=== PATIENT | female | born 1980 | race Caucasian/White ===

== ENCOUNTER 2016-05-05 06:19 | Outpatient (CLI) ==
[2014-01-06 08:57] VITALS: BMI 26.6
[2016-05-05 06:49] LABS: ALBUMIN 3.7 g/dL (3.4-5.0); ALBUMIN/GLOBULIN RATIO 1.19; ANION GAP 12.1; BILIRUBIN,TOTAL 0.97 mg/dL (0.00-1.20); BUN/CREATININE RATIO 11.9; CALCIUM 9.3 mg/dL (8.2-10.2); CHOL/HDL RATIO 3.8 (4.5-5.5); CREATININE 0.84 mg/dL (0.60-1.30); POTASSIUM 4.1 mmol/L (3.5-5.10); TOTAL PROTEIN 6.8 g/dL (6.4-8.2)
== END 2016-05-05 06:20 | disposition home or self-care (01) ==
LOC: LAB 06:19
PROVIDERS: ATTEND Internal Medicine
DX: E78.5 Hyperlipidemia, unspecified (principal); R79.9 Abnormal finding of blood chemistry, unspecified
CPT/HCPCS: 36415; 80053; 80061

== ENCOUNTER 2016-09-04 06:44 | Outpatient (CLI) | payer OTHER ==
[2014-01-06 08:57] VITALS: BMI 26.6
[2016-09-04 06:58] LABS: BASOPHILS # (AUTO) 0.1 K/uL (0-0.2); BASOPHILS % (AUTO) 0.7 % (0.0-3.0); EOSINOPHILS # (AUTO) 0.3 K/ul (0.0-0.7); EOSINOPHILS % (AUTO) 2.9 % (0.0-7.0); HEMATOCRIT 40.6 % (37.0-47.0); HEMOGLOBIN 14.2 g/dl (12.0-16.0); IMMATURE GRANULOCYTE % (AUTO) 0.1 % (0.0-5.0); LYMPHOCYTES # (AUTO) 3.2 K/uL (0.60-3.4); LYMPHOCYTES % (AUTO) 36.9 (10.0-50.0); MEAN CORPUSCULAR HEMOGLOBIN 32.1 pg (27.0-31.0); MEAN CORPUSCULAR VOLUME 91.9 fl (81.0-99.0); MONOCYTES # (AUTO) 0.5 K/uL (0.4-2.0); MONOCYTES % (AUTO) 5.4 (0-10); NEUTROPHILS # (AUTO) 4.6 K/ul (2.0-6.9); PLATELET COUNT 238 10^3/uL (140-440); RED BLOOD COUNT 4.42 10^6/ul (4.20-5.40); WHITE BLOOD COUNT 8.58 K/ul (4.6-10.2)
[2016-09-04 07:39] LABS: ALBUMIN 3.5 g/dL (3.4-5.0); ALBUMIN/GLOBULIN RATIO 1.09; BILIRUBIN,TOTAL 0.46 mg/dL (0.00-1.20); BUN/CREATININE RATIO 16.66; CALCIUM 9.4 mg/dL (8.2-10.2); CHOL/HDL RATIO 4.6 (4.5-5.5); CREATININE 0.9 mg/dL (0.60-1.30); TOTAL PROTEIN 6.7 g/dL (6.4-8.2)
[2016-09-04 07:59] LABS: ERYTHROCYTE SEDIMENTATION RATE 14 mm/hr (0-20); ESR INTERNAL QC INTERNAL QC VALID
[2016-09-05 06:12] LABS: RHEUMATOID ARTHRITIS FACTOR 10.8 IU/mL (0.0-13.9)
[2016-09-05 08:40] LABS: C-REACTIVE PROTEIN 1.1 mg/L (0.0-4.9)
[2016-09-06 09:13] LABS: ANTI-NUCLEAR ANTIBODY SCREEN Negative (Negative)
== END 2016-09-04 06:45 | disposition home or self-care (01) ==
LOC: LAB 06:44
PROVIDERS: ATTEND Internal Medicine
DX: E78.5 Hyperlipidemia, unspecified (principal); R53.83 Other fatigue; E66.9 Obesity, unspecified
CPT/HCPCS: 36415; 80053; 80061; 82306; 83036; 84439; 84443; 85025; 85651; 86038; 86140; 86430

== ENCOUNTER 2017-01-05 10:09 | Outpatient (CLI) | payer OTHER ==
[2014-01-06 08:57] VITALS: BMI 26.6
== END 2017-01-05 10:10 | disposition home or self-care (01) ==
LOC: RAD 10:09
PROVIDERS: ATTEND Obstetrics & Gynecology Obstetrics
DX: Z12.31 Encounter for screening mammogram for malignant neoplasm of breast (principal)
CPT/HCPCS: 77067

== ENCOUNTER 2017-01-16 11:23 | Emergency (ER) ==
[2017-01-16 11:26] VITALS: BP 108/69; TEMP 99; BMI 32.3
[2017-01-16] MEDS ORDERED: ZOFRAN 4 MG/2 ML IM STA (11:31)
[2017-01-16] MEDS ORDERED: DILAUDID 1 MG/ML SYRINGE IM STA (11:31)
--- NOTE | 2017-01-16 12:27 | ED.PDOC ---
General ED Provider: Dr. LEONORA SERNA Chief Complaint: Headache Stated Complaint: headache Time Seen by Physician: 11:30 Mode of Arrival: Wheelchair Information Source: Patient Exam Limitations: No limitations Primary Care Provider: EMILIO DUFF Nursing and Triage Documentation Reviewed and Agree: Yes Neurological Complaint Exam - Headache Complaint/Exam Onset: Gradual Duration: 1 day Symptoms Are: Still present Timing: Constant Episodes Lasting: Hours Worst Headache Ever: No Initial Severity: Severe Current Severity: Severe Location: Diffuse, Frontal, Temporal Aggravating: Reports: None Alleviating: Reports: None Associated Signs and Symptoms: Denies: Dizziness, Seizure, Nausea, Vomiting, Sinus pressure, Fever, Neck pain, Neck stiffness, Decreased LOC, Visual changes Related History: Reports: Similar episode Related Surgical History: Reports: None SAH Risk Factors: Reports: None Meningitis Risk Factors: Reports: None SDH Risk Factors: Reports: None Temporal Arteritis Risk Factors: Reports: Female, Normal Head CT Within Last 12 Months: No Fundoscopic Exam: Present: Normal Findings Temporal Artery Tenderness: Present: None Sinus Tenderness: Present: None TMJ Tenderness: Present: None Glascow Coma Scale (see protocol): 15 Meningeal Signs Positive: No Pain on Passive Flexion-Positive Kernig's: No ROM Limited In: No Limitiations Focal Weakness: Present: None Focal Sensory Loss: Present: None Gait: Normal Nystagmus Present: No Gag Reflex Present: No [id number]: Normal Findings Romberg Test Positive: No Babinski Sign: Negative Right, Negative Left Differential Diagnoses: Migraine, Viral Syndrome Review of Systems - Review Of Systems Constitutional: Reports: No symptoms Eyes: Reports: No symptoms Ears, Nose, Mouth, Throat: Reports: No symptoms Respiratory: Reports: No symptoms Cardiac: Reports: No symptoms GI: Reports: No symptoms : Reports: No symptoms Musculoskeletal: Reports: No symptoms Skin: Reports: No symptoms Neurological: Reports: Headache Endocrine: Reports: No symptoms Hematologic/Lymphatic: Reports: No symptoms All Other Systems: Reviewed and Negative Past Medical History - Past Medical History Previously Healthy: Yes Endocrine: Reports: None Cardiovascular: Reports: None Respiratory: Reports: None Hematological: Reports: None Gastrointestinal: Reports: None Genitourinary: Reports: None Neuro/Psych: Reports: None Musculoskeletal: Reports: None Cancer: Reports: None Last Menstrual Period: N/A - Surgical History General Surgical History: Reports: None - Family History Family History: Reports: None - Social History Smoking Status: Never smoker Hx Substance Use: No Alcohol Screening: Occasionally Physical Exam - Physical Exam Appearance: Well-appearing, No pain distress, Well-nourished Eyes: RAYMOND, EOMI, Conjunctiva clear ENT: Ears normal, Nose normal, Oropharynx normal Respiratory: Airway patent, Breath sounds clear, Breath sounds equal, Respirations nonlabored Cardiovascular: RRR, Pulses normal, No rub, No murmur GI/: Soft, Nontender, No masses, Bowel sounds normal, No Organomegaly Musculoskeletal: Normal strength, ROM intact, No edema, No calf tenderness Skin: Warm, Dry, Normal color Neurological: Sensation intact, Motor intact, Reflexes intact, Cranial nerves intact, Alert, Oriented Psychiatric: Affect appropriate, Mood appropriate Interpretation - Radiology Interpretation Radiology Interpretation By: Radiologist Radiology Results: No acute changes Exam Interpreted: CT Scan Critical Care Note - Critical Care Note Total Time (mins): 0 Course - Course Orders, Labs, Meds: Orders Category Date Time Status Hydromorphone HCl [Dilaudid 1 mg/ml Syringe] MEDS 01/16/17 11:31 Discontinued 1 mg IM ONCE STA Ondansetron HCl/Pf [Zofran 4 mg/2 ml] MEDS 01/16/17 11:31 Discontinued 4 mg IM ONCE STA Medications Discontinued Medications Generic Name Dose Route Start Last Admin Trade Name Terryq PRN Reason Stop Dose Admin Hydromorphone HCl 1 mg 01/16/17 11:31 01/16/17 11:39 Dilaudid 1 Mg/Ml Syringe IM 01/16/17 11:32 1 mg ONCE STA Administration Ondansetron HCl 4 mg 01/16/17 11:31 01/16/17 11:39 Zofran 4 Mg/2 Ml IM 01/16/17 11:32 4 mg ONCE STA Administration Vital Signs: Temp Pulse Resp BP Pulse Ox 01/16/17 11:23 99.0 F 66 16 108/69 97 Departure - Departure Time of Disposition: 12:27 Disposition: HOME SELF-CARE Discharge Problem: Headache, Migraine Instructions: Migraine Headache (ED), Acute Headache (ED) Condition: Good Pt referred to PMD for follow-up: Yes Additional Instructions: Please call your Family Physician as soon as possible to schedule a follow-up appointment. Allergies/Adverse Reactions: Allergies No Known Allergies Allergy (Verified 01/16/17 11:26) Home Medications: Ambulatory Orders Propanolol 10 mg PO BID 03/30/13 Sertraline HCl [Zoloft] 25 mg PO DAILY 03/30/13 Valacyclovir HCl [Valtrex] 1,000 mg PO DAILY 03/30/13 Eletriptan HBr [Relpax] 40 mg PO BID PRN 01/06/14
== END 2017-01-16 13:10 | disposition home or self-care (01) ==
LOC: ED 11:23
DX: G43.909 Migraine, unspecified, not intractable, without status migrainosus (principal)
CPT/HCPCS: 96372; 99283

== ENCOUNTER 2017-01-18 13:41 | Outpatient (CLI) ==
[2017-01-18 14:46] LABS: BASOPHILS # (AUTO) 0.1 K/uL (0-0.2); BASOPHILS % (AUTO) 0.8 % (0.0-3.0); EOSINOPHILS # (AUTO) 0.3 K/ul (0.0-0.7); HEMATOCRIT 40.4 % (37.0-47.0); HEMOGLOBIN 14.4 g/dl (12.0-16.0); IMMATURE GRANULOCYTE % (AUTO) 0.2 % (0.0-5.0); LYMPHOCYTES # (AUTO) 3.3 K/uL (0.60-3.4); LYMPHOCYTES % (AUTO) 39.1 (10.0-50.0); MEAN CORPUSCULAR HEMOGLOBIN 32.7 pg (27.0-31.0); MEAN CORPUSCULAR HGB CONC 35.6 (31.8-35.4); MEAN CORPUSCULAR VOLUME 91.8 fl (81.0-99.0); MONOCYTES # (AUTO) 0.5 K/uL (0.4-2.0); MONOCYTES % (AUTO) 5.4 (0-10); NEUTROPHILS # (AUTO) 4.4 K/ul (2.0-6.9); NEUTROPHILS % (AUTO) 51.5; PLATELET COUNT 262 10^3/uL (140-440); WHITE BLOOD COUNT 8.54 K/ul (4.6-10.2)
[2017-01-18 15:26] LABS: ALBUMIN 3.3 g/dL (3.4-5.0); ALBUMIN/GLOBULIN RATIO 1.03; ANION GAP 11.2; BILIRUBIN,TOTAL 0.27 mg/dL (0.00-1.20); BUN/CREATININE RATIO 19.17; CALCIUM 9.2 mg/dL (8.2-10.2); CHOL/HDL RATIO 4.8 (4.5-5.5); CREATININE 0.73 mg/dL (0.60-1.30); POTASSIUM 4.2 mmol/L (3.5-5.10); TOTAL PROTEIN 6.5 g/dL (6.4-8.2)
--- NOTE | 2017-01-18 15:47 | MRI ---
EXAM: MRA brain without IV contrast. DATE: 18 January 2017. HISTORY: Headaches. Migraine headches increasing in severity. TECHNIQUE: 3-D [id number] sequence centered on the anvik Ramirez was performed without IV contra st, using 1.5 Ernestina magnet. 3-D MIP reconstruction images of the intracranial arteries were produced in addition to the axial source images. COMPARISON: MRI brain 18 January 2017. FINDINGS: Neither vertebral artery is dominant. Vertebrobasilar system is tortuous. Basilar artery is normal in diameter, without focal stenosis, dissection or aneurysm. Each superior cerebellar viridiana ry is intact. Right and left PCOM are intact. ACOM is not visible. Symmetric bilateral blood flow is evident within the anterior, middle, and posterior cerebral artery distributions peripherally. No intracranial aneurysm or AVM is detected. Both petrous ICAs are normal. Each cavernous ICA is norm al. IMPRESSIONS: 1. Nonvisualization of ACOM. 2. Intact bilateral PCOM. 3. No intracranial aneurysm or AVM. 4. Normal vertebral and basilar arteries. 5. Normal bilateral petrous / cavernous ICAs
--- NOTE | 2017-01-18 15:51 | MRI ---
EXAM: MRI brain without IV contrast. DATE: 18 January 2017. HISTORY: Headaches. Migraine headaches worsening in severity. TECHNIQUE: Sagittal T1W, axial T2W, axial FLAIR, axial T1W, axial DWI, and coronal T2W GRE sequences of the brain were obtained using 1.2 Ernestina magnet. No IV contrast. COMPARISON: MRA brain [address] head 01/06/2014. MRI brain 30 May 2011. FINDINGS: The lateral ventricles, Sylvian fissures, and many cerebral sulci are mildly prominent due to involutional change. No midline shift, mass effect or abnormal extra-axial fluid collection is a pparent. No acute infarct, hemorrhage or neoplasm is identified. The lion - white matter differenti ation is normal. The 7th/8th cranial nerve complexes, cerebellopontine angles, brainstem, and visibl e cervical spinal cord are normal. There is no cerebellar tonsillar ectopia. The pituitary gland is small in size, with CSF filling part of the pituitary fossa. Corpus callosum is normal in size and configuration. Flow voids are present in the major intracranial arteries and in the dural venous sin uses. Vertebrobasilar arterial system is tortuous. No aneurysm, AVM or dural venous sinus thrombosi s is apparent. No orbit abnormality is identified. The mastoid air cells are unremarkable. There i s no acute sinusitis. Minor adenoid tissue prominence is noted. A few small lymph nodes are seen wi thin the upper neck bilaterally. No neck mass or lymphadenopathy is detected. No calvarial neoplasm or acute fracture is evident. IMPRESSIONS: 1. No acute infarct, hemorrhage, mass or hydrocephalus. 2. Minor/mild cerebral and minor cerebellar atrophy. 3. 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 4. Minor adenoid hypertrophy (likely benign).
== END 2017-01-18 13:42 | disposition home or self-care (01) ==
LOC: RAD 13:41
PROVIDERS: ATTEND Internal Medicine
DX: G43.909 Migraine, unspecified, not intractable, without status migrainosus (principal); E78.5 Hyperlipidemia, unspecified; M19.90 Unspecified osteoarthritis, unspecified site
CPT/HCPCS: 36415; 80053; 80061; 83036; 84443; 85025

== ENCOUNTER 2017-03-16 10:02 | Outpatient (CLI) | payer OTHER ==
[2017-03-16 11:06] LABS: FLU INTERNAL QC INTERNAL QC VALID; MOLECULAR FLU A NEGATIVE (NEGATIVE); MOLECULAR FLU B NEGATIVE (NEGATIVE)
== END 2017-03-16 10:03 | disposition home or self-care (01) ==
LOC: LAB 10:02
PROVIDERS: ATTEND Internal Medicine
DX: J02.9 Acute pharyngitis, unspecified (principal); R50.9 Fever, unspecified
CPT/HCPCS: 87651; 87804; 87880

== ENCOUNTER 2017-04-05 09:35 | Outpatient (CLI) ==
--- NOTE | 2017-04-05 10:09 | DI ---
EXAM: Two views of the chest. History: Cough and fever. Comparison: Chest radiograph 06/23/2011 Findings: Heart size is normal. No focal consolidation. No appreciable pleural fluid and no pneumo thorax. No acute osseous abnormalities. Impression: No acute cardiopulmonary process.
== END 2017-04-05 09:36 | disposition home or self-care (01) ==
LOC: RAD 09:35
PROVIDERS: ATTEND Internal Medicine
DX: R05 Cough (principal); R50.9 Fever, unspecified
CPT/HCPCS: 36415; 80053; 85025

== ENCOUNTER 2020-05-23 10:10 | Observation (INO) ==
[2020-05-23 10:18] VITALS: BMI 38.7
[2020-05-23] MEDS ORDERED: SODIUM CHLORIDE 1,000 ML IV STA ×3 (10:31→12:09)
[2020-05-23 10:45] LABS: BASOPHILS # (AUTO) 0.1 K/uL (0-0.2); BASOPHILS % (AUTO) 0.7 % (0.0-3.0); EOSINOPHILS # (AUTO) 0.4 K/ul (0.0-0.7); HEMATOCRIT 39.1 % (37.0-47.0); HEMOGLOBIN 13.1 g/dl (12.0-16.0); IMMATURE GRANULOCYTE % (AUTO) 0.4 % (0.0-5.0); LYMPHOCYTES # (AUTO) 3.6 K/uL (0.60-3.4); LYMPHOCYTES % (AUTO) 34.9 (10.0-50.0); MEAN CORPUSCULAR HEMOGLOBIN 30.5 pg (27.0-31.0); MEAN CORPUSCULAR HGB CONC 33.5 (31.8-35.4); MEAN CORPUSCULAR VOLUME 91.1 fl (81.0-99.0); MONOCYTES # (AUTO) 0.7 K/uL (0.4-2.0); MONOCYTES % (AUTO) 6.9 (0-10); NEUTROPHILS # (AUTO) 5.5 K/ul (2.0-6.9); NEUTROPHILS % (AUTO) 53.1 % (42.2-75.2); PLATELET COUNT 249 10^3/uL (140-440); RDW COEFFICIENT OF VARIATION 12.5 % (11.6-14.8); RED BLOOD COUNT 4.29 10^6/ul (4.20-5.40); WHITE BLOOD COUNT 10.43 K/ul (4.6-10.2)
[2020-05-23 10:57] LABS: CREATINE KINASE 23.7 U/L (30-135)
[2020-05-23 10:59] LABS: ALANINE AMINOTRANSFERASE 21.3 U/L (0-35); ALBUMIN 4.03 g/dL (3.5-5.0); ALKALINE PHOSPHATASE 59.1 U/L (38-126); ASPARTATE AMINO TRANSFERASE 25.8 U/L (14-36); BILIRUBIN,TOTAL 0.37 mg/dL (0.2-1.3); BLOOD UREA NITROGEN 12.4 mg/dL (7-17); CALCIUM 9.75 mg/dL (8.4-10.2); CARBON DIOXIDE 26.2 mmol/L (22-30.0); CHLORIDE 103.2 mmol/L (98-107); CREATININE 0.77 mg/dL (0.60-1.30); GLUCOSE 89.1 mg/dL (74-106); POTASSIUM 4.25 mmol/L (3.5-5.1); SODIUM 137.1 mmol/L (134.5-145); TOTAL PROTEIN 7.08 g/dL (6.3-8.2)
[2020-05-23 11:11] LABS: TROPONIN I < 0.012 ng/ml (0.0000-0.120)
--- NOTE | 2020-05-23 11:41 | CT ---
EXAM: CTA chest for PE HISTORY: Postop with dyspnea COMPARISON: Chest x-ray 05/12/2019 and priors TECHNIQUE: CTA of the chest was performed from the lung apices to the upper abdomen after 75 ml of O mnipaque IV contrast was administered using PE protocol. 3-D imaging was also provided. FINDINGS: There is no filling defect in the pulmonary arteries to the level of the subsegmental pulm onary arteries. The heart is normal without signs of ventricular strain. The aorta is normal. The heart is unremarkable. There is no mediastinal lymphadenopathy. The thyroid is normal. There is no pneumothorax or effusion. There is mild patchy ground-glass in the left lower lobe. The re is no consolidation, nodule or mass. The airways are patent. Soft tissues in the upper abdomen demonstrate prior cholecystectomy. The osseous structures are unre markable. IMPRESSION: 1. No pulmonary embolism. 2. There is mild patchy ground-glass in the left lower lobe likely postinflammatory/pneumonitis. All CT scans are performed using dose optimization techniques as appropriate to the performed exam an d include at least one of the following: Automated exposure control, adjustment of the mA and/or kV according t o size, and the use of iterative reconstruction technique.
[2020-05-23] MEDS ORDERED: ROCEPHIN 1 GM/50 ML D5W 1 GM/50 ML BAG IV STA (12:03)
--- NOTE | 2020-05-23 12:03 | ED.PDOC ---
General ED Provider: Dr. LAVINIA VO Chief Complaint: Non-specific Complaint Stated Complaint: anabella felt terrible since my surgery--i had cough and low sats postop last week Time Seen by Provider: 05/23/20 10:16 Mode of Arrival: Wheelchair Information Source: Patient Primary Care Provider: EMILIO GUERRERO Nursing and Triage Documentation Reviewed and Agree: Yes Does patient meet sepsis criteria?: No System Inflammatory Response Syndrome: Not Applicable Sepsis Protocol: For patient's 13 years and over: Temp is 96.8 and below OR 101 and greater Pulse >90 BPM Resp >20/minute Acutely Altered Mental Status Are patient's symptoms suggestive of a new infection, such as: -Pneumonia -Skin, Soft Tissue -Endocarditis -UTI -Bone, Joint Infection -Implantable Device -Acute Abdominal Infection -Wound Infection -Meningitis -Blood Stream Catheter Infection -Unknown Respiratory Complaint Exam Respiratory Complaint/Exam Onset/Duration: several days Symptoms Are: Still present Timing: Intermittent Initial Severity: Mild Current Severity: Mild Location: Chest Character: Reports Non-productive cough Aggravating: Reports URI Associated Signs and Symptoms: Reports Dyspnea, Fever and URI History of Healthcare-Acquired Pneumonia: No Pseudomonas Risk Factors: Reports None Tuberculosis Risk Factors: Reports None Status Asthmaticus Risk Factors: Reports None Home Peak Flow: Recent personal best Recent Stress Test: No Recent Echo/LV Function: No Current Antibiotic Use: No Current Asthma Medication Use: No Respiratory Distress: None Inadequate Respiratory Effort: No Dysphagia Present: No Stridor Present: No JVD Present: No Accessory Muscle Use: No Retractions: Not Present Diminished Breath Sounds: No Sinus Tenderness: None Grunting Respirations: No Kussmaul Respirations: No Differential Diagnoses: Pneumonia Non-Traumatic Chest Pain Syncope: EKG Performed Review of Systems Review Of Systems Constitutional: Reports No symptoms Eyes: Reports No symptoms Ears, Nose, Mouth, Throat: Reports No symptoms Respiratory: Reports Cough and Short of air Cardiac: Reports No symptoms GI: Reports No symptoms : Reports No symptoms Musculoskeletal: Reports No symptoms Skin: Reports No symptoms Neurological: Reports No symptoms Endocrine: Reports No symptoms Hematologic/Lymphatic: Reports No symptoms All Other Systems: Reviewed and Negative PFSH Social History Smoking and tobacco status: Never smoker Female Reproductive History Menstrual Hx Hysterectomy: Yes Hx Tubal Ligation: No Physical Exam Physical Exam Appearance: Reports Well-appearing Ill-appearing: None Pain Distress: None Eyes: Reports RAYMOND, EOMI and Conjunctiva clear ENT: Reports Ears normal, Nose normal and Oropharynx normal Neck: Supple Respiratory: Reports Airway patent, Breath sounds clear and Breath sounds equal Cardiovascular: Reports RRR, Pulses normal, No rub and No murmur GI/: Reports Soft, Nontender, No masses, Bowel sounds normal and No Organomegaly Musculoskeletal: Reports Normal strength, ROM intact, No edema and No calf tenderness Skin: Reports Warm, Dry and Normal color Neurological: Reports Sensation intact, Motor intact, Reflexes intact, Cranial nerves intact, Alert and Oriented Psychiatric: Reports Affect appropriate and Mood appropriate Interpretation Radiology Interpretation Radiology Interpretation By: Radiologist Radiology Results: Positive Exam Interpreted: CT Scan EKG Interpretation Time of EKG #1: 12:01 Rate: Normal Rhythm: Sinus Ectopy: None [place]: NL ST Segment: Normal Interpretation: nsr Physician Notification Case Discussed Physician Notified: dr guerrero Time of Notification: 12:01 Critical Care Note Critical Care Note Total Critical Care Time (mins): 0 Course Course Hematology/Chemistry: 05/23/20 10:40 05/23/20 10:40 Orders, Labs, Meds: Lab Review 05/23/20 05/23/20 05/23/20 10:40 10:40 10:40 WBC 10.43 H RBC 4.29 Hgb 13.1 Hct 39.1 MCV 91.1 MCH 30.5 MCHC 33.5 RDW Coeff of Luis 12.5 Plt Count 249 Immature Gran % (Auto) 0.4 Neut % (Auto) 53.1 Lymph % (Auto) 34.9 Dent % (Auto) 6.9 Eos % (Auto) 4.0 Baso % (Auto) 0.7 Neut # (Auto) 5.5 Lymph # (Auto) 3.6 H Dent # (Auto) 0.7 Eos # (Auto) 0.4 Baso # (Auto) 0.1 Immature Gran # (Auto) 0.0 Sodium 137.1 Potassium 4.25 Chloride 103.2 Carbon Dioxide 26.2 Anion Gap 11.95 BUN 12.4 Creatinine 0.77 Estimated GFR (MDRD) 82.00 BUN/Creatinine Ratio 16.10 Glucose 89.1 Lactic Acid Calcium 9.75 Total Bilirubin 0.37 AST 25.8 ALT 21.3 Alkaline Phosphatase 59.1 Total Creatine Kinase 23.7 L Troponin I < 0.012 Total Protein 7.08 Albumin 4.03 Globulin 3.05 Albumin/Globulin Ratio 1.32 05/23/20 11:20 WBC RBC Hgb Hct MCV MCH MCHC RDW Coeff of Luis Plt Count Immature Gran % (Auto) Neut % (Auto) Lymph % (Auto) Dent % (Auto) Eos % (Auto) Baso % (Auto) Neut # (Auto) Lymph # (Auto) Dent # (Auto) Eos # (Auto) Baso # (Auto) Immature Gran # (Auto) Sodium Potassium Chloride Carbon Dioxide Anion Gap BUN Creatinine Estimated GFR (MDRD) BUN/Creatinine Ratio Glucose Lactic Acid 1.12 Calcium Total Bilirubin AST ALT Alkaline Phosphatase Total Creatine Kinase Troponin I Total Protein Albumin Globulin Albumin/Globulin Ratio Orders Category Date Time Status EKG-(ED ONLY) Stat CARDIO 05/23/20 10:31 Completed NPO REMINDER: IMAGING ONCE CARE 05/23/20 10:33 Active ED THERAPY DIRECTOR APPLIED .ONCE EMERGENCY 05/23/20 10:31 Active ED IV/MEDIPORT/POWERPORT .ONCE EMERGENCY 05/23/20 10:31 Active ED ORTHOSTATIC VITAL SIGNS .ONCE EMERGENCY 05/23/20 10:33 Active CBC W/ AUTO DIFF Stat LAB 05/23/20 10:40 Completed COMPREHENSIVE METABOLIC PANEL Stat LAB 05/23/20 10:40 Completed CREATINE KINASE Stat LAB 05/23/20 10:40 Completed LACTIC ACID Stat LAB 05/23/20 11:20 Completed MOLECULAR GROUP A STREP Stat LAB 05/23/20 11:05 Completed RESPIRATORY PANEL 2.1 (PCR) Stat LAB 05/23/20 Ordered TROPONIN I Stat LAB 05/23/20 10:40 Completed URINALYSIS C & S IF INDICATED Stat LAB 05/23/20 10:33 Uncollected 0.9 % Sodium Chloride [Saline Flush] MEDS 05/23/20 10:31 Active 1 syr IVF PRN PRN Sodium Chloride 0.9% [Sodium Chloride] 1,000 ml MEDS 05/23/20 10:34 Active IV 100 mls/hr Sodium Chloride 0.9% [Sodium Chloride] 1,000 ml MEDS 05/23/20 10:[address] CHEST PE PROTOCOL Stat RADS 05/23/20 10:31 Completed Medications Generic Name Dose Route Start Last Admin Trade Name Freq PRN Reason Stop Dose Admin Sodium Chloride 1,000 mls @ 100 mls/hr 05/23/20 10:34 Sodium Chloride IV 05/23/20 20:33 .Q10H STA Sodium Chloride 1 syr 05/23/20 10:31 05/23/20 11:03 0.9% Sodium Chloride 10 Ml Disp.Syrin IVF 1 syr PRN PRN Administration To flush IV Discontinued Medications Generic Name Dose Route Start Last Admin Trade Name Freq PRN Reason Stop Dose Admin Sodium Chloride 1,000 mls @ 1,000 mls/hr 05/23/20 10:31 05/23/20 11:03 Sodium Chloride IV 05/23/20 11:30 1,000 mls/hr BOLUS STA Administration Vital Signs: Temp Pulse Resp BP Pulse Ox 05/23/20 11:05 88 122/84 05/23/20 11:04 90 120/87 05/23/20 10:11 99.2 F 74 17 118/84 96 Discharge Plan Discharge Patient Disposition: ADMITTED INPATIENT Discharge Problem: Pneumonia Prescriptions: No Action sertraline [Zoloft] 25 MG tablet 25 mg PO DAILY RF: 0 Propanolol 10 mg PO BID RF: 0 valacyclovir [Valtrex] 1,000 MG tablet 1,000 mg PO DAILY RF: 0 eletriptan [Relpax] 40 MG tablet 40 mg PO BID PRN (Reason: Mild Pain) RF: 0 Emgality 120 mg INJ MONTHLY RF: 0 Ubrelvy 50 mg tablet 50 mg PO PRN PRN (Reason: Migraine Headache) RF: 0 ED Provider: LAVINIA VO Condition: Fair Physician Progress Note: []
[2020-05-23] MEDS ORDERED: ELETRIPTAN 40 MG PO PRN (12:07)
[2020-05-23] MEDS ORDERED: EMGALITY 120 MG SUBCUT SCH (12:15)
[2020-05-23] MEDS ORDERED: DECADRON IVP STA (12:41)
[2020-05-23] MEDS: DOXY-100 100 MG in SODIUM CHLORIDE 100 ML IV SCH ×2 (13:52→21:03)
[2020-05-23] MEDS: VENTOLIN HFA (PER PUFF-WITH SPACER) IH SCH ×2 (14:20→19:15)
[2020-05-23 14:55] LABS: BILIRUBIN,URINE Negative (NEGATIVE); CLARITY,URINE Clear (CLEAR); COLOR,URINE Yellow (YELLOW); GLUCOSE, URINE (UA) Negative (NEGATIVE); KETONES,URINE Negative (NEGATIVE); LEUKOCYTE ESTERASE ,URINE Negative (NEGATIVE); NITRITE,URINE Negative (NEGATIVE); PH,URINE 7.5 (5-9); PROTEIN,URINE Negative (NEGATIVE); URINE, BLOOD Negative (NEGATIVE); UROBILINOGEN,URINE 0.2 (0.2)
[2020-05-23] MEDS: INDERAL PO SCH (20:51)
[2020-05-24] MEDS: VENTOLIN HFA (PER PUFF-WITH SPACER) IH SCH ×4 (05:15→19:10)
[2020-05-24 05:45] LABS: BASOPHILS # (AUTO) 0.1 K/uL (0-0.2); BASOPHILS % (AUTO) 0.4 % (0.0-3.0); EOSINOPHILS % (AUTO) 0.2 % (0.0-7.0); HEMATOCRIT 37.2 % (37.0-47.0); HEMOGLOBIN 12.6 g/dl (12.0-16.0); IMMATURE GRANULOCYTE # (AUTO) 0.1 (0.0-1.0); IMMATURE GRANULOCYTE % (AUTO) 0.5 % (0.0-5.0); LYMPHOCYTES # (AUTO) 2.2 K/uL (0.60-3.4); LYMPHOCYTES % (AUTO) 17.1 (10.0-50.0); MEAN CORPUSCULAR HEMOGLOBIN 30.7 pg (27.0-31.0); MEAN CORPUSCULAR HGB CONC 33.9 (31.8-35.4); MEAN CORPUSCULAR VOLUME 90.5 fl (81.0-99.0); MONOCYTES # (AUTO) 0.6 K/uL (0.4-2.0); MONOCYTES % (AUTO) 4.4 (0-10); NEUTROPHILS % (AUTO) 77.4 % (42.2-75.2); PLATELET COUNT 282 10^3/uL (140-440); RDW COEFFICIENT OF VARIATION 12.7 % (11.6-14.8); RED BLOOD COUNT 4.11 10^6/ul (4.20-5.40); WHITE BLOOD COUNT 12.86 K/ul (4.6-10.2)
[2020-05-24 05:59] LABS: ALANINE AMINOTRANSFERASE 18.9 U/L (0-35); ALBUMIN 3.75 g/dL (3.5-5.0); ALKALINE PHOSPHATASE 57.9 U/L (38-126); ASPARTATE AMINO TRANSFERASE 20.7 U/L (14-36); BILIRUBIN,TOTAL 0.31 mg/dL (0.2-1.3); CALCIUM 9.16 mg/dL (8.4-10.2); CARBON DIOXIDE 21.9 mmol/L (22-30.0); CHLORIDE 107.6 mmol/L (98-107); CREATININE 0.67 mg/dL (0.60-1.30); GLUCOSE 93.1 mg/dL (74-106); POTASSIUM 4.08 mmol/L (3.5-5.1); SODIUM 137.1 mmol/L (134.5-145); TOTAL PROTEIN 6.77 g/dL (6.3-8.2)
[2020-05-24] MEDS: DECADRON IVP SCH (08:43)
[2020-05-24] MEDS ORDERED: LOVENOX SUBCUT SCH (09:00)
[2020-05-24] MEDS: DOXY-100 100 MG in SODIUM CHLORIDE 100 ML IV SCH ×2 (09:16→20:16)
[2020-05-24] MEDS: VALTREX PO SCH (09:16)
--- NOTE | 2020-05-24 09:16 | PCM.PROG ---
Attending Provider: ATTENDING PROVIDER: Dr. EMILIO DUFF This patient is seen with Arabella Ferrara, Nurse Practitioner. DATE OF SERVICE: 05/24/20 SUBJECTIVE: This 40 year old /WHITE F was hospitalized 05/23/20. The patient is resting comfortably. Still with cough and no fever. Weakness has slightly improved. REVIEW OF SYSTEMS: CONSTITUTIONAL: No night sweats. No fatigue, malaise, lethargy. No fever or chills. Weakness. HEENT: Eyes: No visual changes. No eye pain. No eye discharge. ENT: No runny nose. No epistaxis. No sinus pain. No odynophagia. No congestion. RESPIRATORY: Cough, no congestion. No hemoptysis. No shortness of breath. CARDIOVASCULAR: No angina symptoms. No CHF symptoms. No atypical chest pain for CAD. No palpitations. No orthopnea.. GASTROINTESTINAL: No abdominal pain. No nausea or vomiting. No diarrhea or constipation. No hematemesis. No hematochezia. GENITOURINARY: No urgency. No frequency. No dysuria. No hematuria. No obstructive symptoms. No discharge. No pain. No significant abnormal bleeding. MUSCULOSKELETAL: No musculoskeletal pain; no joint swelling. NEUROLOGICAL: Awake, alert, oriented to time, place and person. No headache. No neck pain. No syncope. No seizures. No dizziness. PSYCHIATRIC: Not anxious. No depression. No suicidal thoughts. No homicidal thoughts. SKIN: No rash. No lesions. No wounds. ENDOCRINE: No unexplained weight loss. No weight gain. HEMATOLOGIC/LYMPHATIC: No anemia. No purpura. No petechiae. No prolonged or excessive bleeding. No palpable lymph nodes. PHYSICAL EXAMINATION: GENERAL: The patient is awake, alert and oriented, lying in bed in no distress. VITAL SIGNS: Temperature 97.5 F, Pulse 76, Respiratory Rate 18, BP 117/84, Pulse Ox 96% HEENT: Head normocephalic, atraumatic. Eyes: Extraocular muscles are intact. Pupils are equal, round and reactive to light and accommodation. Ears: No lesions. Nose appeared normal. Throat: No exudate or erythema. NECK: Supple. No JVD, no carotid bruit. No lymphadenopathy or thyromegaly. LUNGS: Diminished breath sounds. Faint rales left lower lobe. Clear to auscultation. Percussion note normal. Chest symmetrical. HEART: S1, S2, no S3. No murmurs. No cyanosis or clubbing. No ascites. Pulses: Dorsalis pedis and posterior tibial pulses +1 to +2 both sides. ABDOMEN: Soft. Non-tender. Bowel sounds active. No CVA tenderness. No mass felt. EXTREMITIES: No edema. Full range of motion of all extremities, equal. NEUROLOGIC: No focal deficit. Cranial nerves II through XII are grossly intact. No headache. No double vision. SKIN: Not dry. Intact. Turgor-normal. LYMPHATIC: No palpable lymph nodes/no lymphedema. MUSCULOSKELETAL: Normal joints with no swelling. Muscle tone is normal. LAB REVIEW: 05/24/20 04:55 05/24/20 04:55 05/24/20 04:55: Sodium 137.1, Potassium 4.08, Chloride 107.6 H, Carbon Dioxide 21.9 L, Anion Gap 11.68, BUN 10.0, Creatinine 0.67, Estimated GFR (MDRD) 97.00, BUN/Creatinine Ratio 14.92, Glucose 93.1, Calcium 9.16, Total Bilirubin 0.31, AST 20.7, ALT 18.9, Alkaline Phosphatase 57.9, Total Protein 6.77, Albumin 3.75, Globulin 3.02, Albumin/Globulin Ratio 1.24 05/24/20 04:55: WBC 12.86 H, RBC 4.11 L, Hgb 12.6, Hct 37.2, MCV 90.5, MCH 30.7, MCHC 33.9, RDW Coeff of Luis 12.7, Plt Count 282, Immature Gran % (Auto) 0.5, Neut % (Auto) 77.4 H, Lymph % (Auto) 17.1, [place] % (Auto) 4.4, Eos % (Auto) 0.2, Baso % (Auto) 0.4, Neut # (Auto) 10.0 H, Lymph # (Auto) 2.2, [place] # (Auto) 0.6, Eos # (Auto) 0.0, Baso # (Auto) 0.1, Immature Gran # (Auto) 0.1 05/23/20 13:25: Urine Color Yellow, Urine Clarity Clear, Urine pH 7.5, Ur Specific [place] 1.015, Urine Protein Negative, Urine Glucose (UA) Negative, Urine Ketones Negative, Urine Blood Negative, Urine Nitrite Negative, Urine Bilirubin Negative, Urine Urobilinogen 0.2, Ur Leukocyte Esterase Negative 05/23/20 11:58: Adenovirus (PCR) Not detected, B. pertussis DNA (PCR) Not detected, B.parapertussis DNA PCR Not detected, C. pneumoniae DNA (PCR) Not detected, Coronavirus OC43 (PCR) Not detected, Coronavirus HKU1 (PCR) Not detected, Coronavirus 229E (PCR) Not detected, Coronavirus NL63 (PCR) Not detected, Human Metapneumovir PCR Not detected, Influenza Type A (PCR) Not detected, Influenza B (RT-PCR) Not detected, M. pneumoniae (PCR) Not detected, Parainfluenza 1 (PCR) Not detected, Parainfluenza 2 (PCR) Not detected, Parainfluenza 3 (PCR) Not detected, Parainfluenza 4 (PCR) Not detected, RSV (PCR) Not detected, Entero/Rhino (PCR) Not detected, SARS-CoV-2 (PCR) Not detected 05/23/20 11:20: Lactic Acid 1.12 05/23/20 10:40: Sodium 137.1, Potassium 4.25, Chloride 103.2, Carbon Dioxide 26.2, Anion Gap 11.95, BUN 12.4, Creatinine 0.77, Estimated GFR (MDRD) 82.00, BUN/Creatinine Ratio 16.10, Glucose 89.1, Calcium 9.75, Total Bilirubin 0.37, AST 25.8, ALT 21.3, Alkaline Phosphatase 59.1, Total Protein 7.08, Albumin 4.03, Globulin 3.05, Albumin/Globulin Ratio 1.32 05/23/20 10:40: WBC 10.43 H, RBC 4.29, Hgb 13.1, Hct 39.1, MCV 91.1, MCH 30.5, MCHC 33.5, RDW Coeff of Luis 12.5, Plt Count 249, Immature Gran % (Auto) 0.4, Neut % (Auto) 53.1, Lymph % (Auto) 34.9, Nicol[place] % (Auto) 6.9, Eos % (Auto) 4.0, Baso % (Auto) 0.7, Neut # (Auto) 5.5, Lymph # (Auto) 3.6 H, [place] # (Auto) 0.7, Eos # (Auto) 0.4, Baso # (Auto) 0.1, Immature Gran # (Auto) 0.0 05/23/20 10:40: Total Creatine Kinase 23.7 L, Troponin I < 0.012 ASSESSMENT: Please see below. 1. Left lower lobe pneumonia 2. Generalized weakness. PLAN: 1. Continue IV antibiotics. Plan and coordination of the patient's care discussed in the presence of Veterinarian Poultry and nurse. SCRIBED BY: Gilbert HARTMAN scribed while in presence of service performed by Dr. Duff/Arabella Ferrara APRN on 05/24/20 ([id number])
[2020-05-24] MEDS: ZOLOFT PO SCH (09:17)
[2020-05-24] MEDS: INDERAL PO SCH ×2 (09:17→20:15)
--- NOTE | 2020-05-24 11:55 | PN ---
DATE OF SERVICE: 05/23/2020 SUBJECTIVE: The patient was seen and examined in the emergency room. The patient came to the emergency room with complaint of having dry cough with congestion and hypoxemia that was post op. The patient had a surgery on warts that were removed and she required intubation at that time and post surgery after extubation the patient had runs of hypoxic oximetry readings. The patient's condition didn't improve so she decided to come to the emergency room for further checkup. REVIEW OF SYSTEMS: CONSTITUTIONAL: No night sweats. No fatigue, malaise, lethargy. No fever or chills. HEENT: Eyes: No visual changes. No eye pain. No eye discharge. ENT: No runny nose. No epistaxis. No sinus pain. No sore throat. No odynophagia. No congestion. RESPIRATORY: No cough, no congestion. No hemoptysis. No shortness of breath. CARDIOVASCULAR: No angina symptoms. No CHF symptoms. No atypical chest pain for CAD. No palpitations. No PND. No orthopnea. GASTROINTESTINAL: No abdominal pain. No nausea or vomiting. No diarrhea or constipation. No hematemesis. No hematochezia. GENITOURINARY: No urgency. No frequency. No dysuria. No hematuria. No obstructive symptoms. No discharge. No pain. No significant abnormal bleeding. MUSCULOSKELETAL: No musculoskeletal pain; no joint swelling. NEUROLOGICAL: No headache. No neck pain. No syncope. No seizures. No dizziness. PSYCHIATRIC: Not anxious. No depression. No suicidal thoughts. No homicidal thoughts. SKIN: No rash. No lesions. No wounds. ENDOCRINE: No unexplained weight loss. No weight gain. HEMATOLOGIC/LYMPHATIC: No anemia. No purpura. No petechiae. No prolonged or excessive bleeding. No palpable lymph nodes. PHYSICAL EXAMINATION: GENERAL: The patient is oriented to time, place and person. VITAL SIGNS: HEENT: Head normocephalic, atraumatic. Eyes: Extraocular muscles are intact. Pupils are equal, round and reactive to light and accommodation. Ears: No lesions. Nose appeared normal. Throat: No exudate or erythema. NECK: Supple. No JVD, no carotid bruit. No lymphadenopathy or thyromegaly. LUNGS: Decreased breath sounds but clear to auscultation. Percussion note normal. Chest symmetrical. HEART: S1, S2, no S3. No murmurs. Sinus rhythm. No cyanosis or clubbing. No ascites. Pulses: Dorsalis pedis and posterior tibial pulses +1 to +2 bilaterally. ABDOMEN: Soft. Nontender. Bowel sounds active. No CVA tenderness. No mass felt. EXTREMITIES: No edema. Full range of motion of all extremities, equal. NEUROLOGIC: No focal deficit. Cranial nerves II through XII are grossly intact. No headache. No double vision. SKIN: Not dry. Intact. Turgor - normal. Color is somewhat pale. LYMPHATIC: No palpable lymph nodes/no lymphedema. MUSCULOSKELETAL: Normal joints with no swelling. Muscle tone is normal. LABS: Labs test are all normal including CBC, CMP with WBC of 10,000. CT angiogram to rule out any pulmonary embolism which was negative for embolism but the patient had left lower lobe infiltrates. ASSESSMENT: 1. Congestion likely from left lower lobe infiltrate could be from aspiration pneumonitis. 2. History of COVID 4-5 months ago 3. History of fibromyalgia 4. Severe dyslipidemia 5. Obesity PLAN: 1. Start IV antibiotics, steroids 2. Inhalers 3. Telemetry CONDITION: Stable for now. TIME SPENT: More than 30 minutes. Plan and coordination of the patient's care discussed in the presence of nurse. SHANI
[2020-05-24] MEDS: ROCEPHIN 1 GM/50 ML D5W 1 GM/50 ML BAG IV SCH (12:42)
[2020-05-25] MEDS ORDERED: ZOFRAN 4 MG/2 ML IVP PRN (01:46)
[2020-05-25 05:18] LABS: BASOPHILS # (AUTO) 0.1 K/uL (0-0.2); BASOPHILS % (AUTO) 0.4 % (0.0-3.0); EOSINOPHILS # (AUTO) 0.1 K/ul (0.0-0.7); EOSINOPHILS % (AUTO) 0.8 % (0.0-7.0); HEMATOCRIT 37.2 % (37.0-47.0); HEMOGLOBIN 12.6 g/dl (12.0-16.0); IMMATURE GRANULOCYTE # (AUTO) 0.1 (0.0-1.0); IMMATURE GRANULOCYTE % (AUTO) 0.5 % (0.0-5.0); LYMPHOCYTES # (AUTO) 3.7 K/uL (0.60-3.4); LYMPHOCYTES % (AUTO) 27.6 (10.0-50.0); MEAN CORPUSCULAR HEMOGLOBIN 30.7 pg (27.0-31.0); MEAN CORPUSCULAR HGB CONC 33.9 (31.8-35.4); MEAN CORPUSCULAR VOLUME 90.7 fl (81.0-99.0); MONOCYTES # (AUTO) 0.9 K/uL (0.4-2.0); NEUTROPHILS # (AUTO) 8.6 K/ul (2.0-6.9); NEUTROPHILS % (AUTO) 63.7 % (42.2-75.2); PLATELET COUNT 274 10^3/uL (140-440); RDW COEFFICIENT OF VARIATION 13.1 % (11.6-14.8); WHITE BLOOD COUNT 13.44 K/ul (4.6-10.2)
[2020-05-25 05:30] LABS: ALANINE AMINOTRANSFERASE 21.3 U/L (0-35); ALBUMIN 3.81 g/dL (3.5-5.0); ALKALINE PHOSPHATASE 54.3 U/L (38-126); ASPARTATE AMINO TRANSFERASE 20.6 U/L (14-36); BILIRUBIN,TOTAL 0.31 mg/dL (0.2-1.3); BLOOD UREA NITROGEN 15.2 mg/dL (7-17); CALCIUM 9.18 mg/dL (8.4-10.2); CARBON DIOXIDE 21.9 mmol/L (22-30.0); CHLORIDE 107.7 mmol/L (98-107); CREATININE 0.71 mg/dL (0.60-1.30); GLUCOSE 85.9 mg/dL (74-106); POTASSIUM 3.96 mmol/L (3.5-5.1); SODIUM 136.8 mmol/L (134.5-145); TOTAL PROTEIN 6.77 g/dL (6.3-8.2)
[2020-05-25] MEDS: VENTOLIN HFA (PER PUFF-WITH SPACER) IH SCH ×2 (05:45→10:00)
[2020-05-25 05:51] VITALS: BP 109/70; TEMP 98.1
[2020-05-25] MEDS: ROCEPHIN 1 GM/50 ML D5W 1 GM/50 ML BAG IV SCH (08:54)
[2020-05-25] MEDS: VALTREX PO SCH (08:54)
[2020-05-25] MEDS: ZOLOFT PO SCH (08:54)
[2020-05-25] MEDS: INDERAL PO SCH (08:54)
--- NOTE | 2020-05-25 09:01 | PCM.PROG ---
Attending Provider: ATTENDING PROVIDER: Dr. EMILIO DUFF This patient is seen with Arabella Ferrara, Nurse Practitioner. DATE OF SERVICE: 05/25/20 SUBJECTIVE: This 40 year old /WHITE F was hospitalized 05/23/20. The patient is resting comfortably. She has been eating well. No shortness of breath. Cough has improved. No fever. REVIEW OF SYSTEMS: CONSTITUTIONAL: No night sweats. No fatigue, malaise, lethargy. No fever or chills. HEENT: Eyes: No visual changes. No eye pain. No eye discharge. ENT: No runny nose. No epistaxis. No sinus pain. No odynophagia. No congestion. RESPIRATORY: Cough, no congestion. No hemoptysis. No shortness of breath. CARDIOVASCULAR: No angina symptoms. No CHF symptoms. No atypical chest pain for CAD. No palpitations. No orthopnea.. GASTROINTESTINAL: No abdominal pain. No nausea or vomiting. No diarrhea or constipation. No hematemesis. No hematochezia. GENITOURINARY: No urgency. No frequency. No dysuria. No hematuria. No obstructive symptoms. No discharge. No pain. No significant abnormal bleeding. MUSCULOSKELETAL: No musculoskeletal pain; no joint swelling. NEUROLOGICAL: Awake, alert, oriented to time, place and person. No headache. No neck pain. No syncope. No seizures. No dizziness. PSYCHIATRIC: Not anxious. No depression. No suicidal thoughts. No homicidal thoughts. SKIN: No rash. No lesions. No wounds. ENDOCRINE: No unexplained weight loss. No weight gain. HEMATOLOGIC/LYMPHATIC: No anemia. No purpura. No petechiae. No prolonged or excessive bleeding. No palpable lymph nodes. PHYSICAL EXAMINATION: GENERAL: The patient is awake, alert and oriented, sitting in bed in no distress. VITAL SIGNS: Temperature 98.1 F, Pulse 73, Respiratory Rate 18, BP 109/70, Pulse Ox 94% HEENT: Head normocephalic, atraumatic. Eyes: Extraocular muscles are intact. Pupils are equal, round and reactive to light and accommodation. Ears: No lesions. Nose appeared normal. Throat: No exudate or erythema. NECK: Supple. No JVD, no carotid bruit. No lymphadenopathy or thyromegaly. LUNGS: Diminished breath sounds. Clear to auscultation. Percussion note normal. Chest symmetrical. HEART: S1, S2, no S3. No murmurs. No cyanosis or clubbing. No ascites. Pulses: Dorsalis pedis and posterior tibial pulses +1 to +2 both sides. ABDOMEN: Soft. Non-tender. Bowel sounds active. No CVA tenderness. No mass felt. EXTREMITIES: No edema. Full range of motion of all extremities, equal. NEUROLOGIC: No focal deficit. Cranial nerves II through XII are grossly intact. No headache. No double vision. SKIN: Not dry. Intact. Turgor-normal. LYMPHATIC: No palpable lymph nodes/no lymphedema. MUSCULOSKELETAL: Normal joints with no swelling. Muscle tone is normal. LAB REVIEW: 05/25/20 04:50 05/25/20 04:50 05/25/20 04:50: Sodium 136.8, Potassium 3.96, Chloride 107.7 H, Carbon Dioxide 21.9 L, Anion Gap 11.16, BUN 15.2, Creatinine 0.71, Estimated GFR (MDRD) 90.00, BUN/Creatinine Ratio 21.40, Glucose 85.9, Calcium 9.18, Total Bilirubin 0.31, AST 20.6, ALT 21.3, Alkaline Phosphatase 54.3, Total Protein 6.77, Albumin 3.81, Globulin 2.96, Albumin/Globulin Ratio 1.28 05/25/20 04:50: WBC 13.44 H, RBC 4.10 L, Hgb 12.6, Hct 37.2, MCV 90.7, MCH 30.7, MCHC 33.9, RDW Coeff of Luis 13.1, Plt Count 274, Immature Gran % (Auto) 0.5, Neut % (Auto) 63.7, Lymph % (Auto) 27.6, [place] % (Auto) 7.0, Eos % (Auto) 0.8, Baso % (Auto) 0.4, Neut # (Auto) 8.6 H, Lymph # (Auto) 3.7 H, [place] # (Auto) 0.9, Eos # (Auto) 0.1, Baso # (Auto) 0.1, Immature Gran # (Auto) 0.1 ASSESSMENT: Please see below. 1. Left lower lobe pneumonia. PLAN: 1. Prednisone 10mg BID for 5 days 2. Discharge home 3. Omnicef 300mg BID for 7 days 4. Doxycycline 100mg BID for 7 days 5. No work until we see her in the office next week. pred 10mg BID for 5 days Plan and coordination of the patient's care discussed in the presence of Parking Enforcement Specialist and nurse. SCRIBED BY: SHANNAN VAZQUEZ [employer] Leader scribed while in presence of service performed by Dr. Duff/Arabella Ferrara APRN on 05/25/20 ([id number])
[2020-05-25] MEDS: DECADRON IVP SCH (09:58)
[2020-05-25] MEDS: DOXY-100 100 MG in SODIUM CHLORIDE 100 ML IV SCH (10:04)
--- NOTE | 2020-05-25 10:10 | CM.DICTOOL ---
ADMISSION: 05/23/20 13:12 DISCHARGE: MAY 25, 2020 DATE OF SERVICE: 05/25/20 FINAL DIAGNOSIS LT LOWER LOBE PNEUMONIA GENERAL WEAKNESS HX: CARDIAC DYSRHYTHMIAS SVTs COVID 10/2019 FIBROMYALGIA ASTHMATIC BRONCHITIS PLEURODYNIA HYPERLIPIDEMIA MAJOR DEPRESSIVE DISORDER LOW BACK PAIN/LUMBAGO OBESITY OSTEOARTHRITIS OVARIAN CYST, LT ABDOMINAL PAIN MIGRAINE HEADACHES PROCEDURES: MAMMOGRAM MOLES SURGICALLY REMOVED RT FOOT AND LT BUTTOCK LAST VITALS Temp Pulse Resp BP Pulse Ox 98.1 F 73 18 109/70 94 L 05/25/20 05:49 05/25/20 05:49 05/25/20 05:49 05/25/20 05:49 05/25/20 05:49 TAKE THESE MEDICATIONS AT HOME Albuterol Sulfate (Albuterol Sulfate (Ventolin Hfa) 18 Gm 1 Puff With Spacer) 2 puff IH TID [facility] -- ( NEW) Last Admin: 05/25/20 05:45 Dose: 2 puff Documented by: Non-Formulary Medication (Eletriptan [Relpax]) 40 mg PO BID PRN PRN Reason: Mild Pain Non-Formulary Medication (Emgality) 120 mg SUBCUT MONTHLY [facility] Non-Formulary Medication (Ubrogepant [Ubrelvy]) 50 mg PO ONCE PRN PRN Reason: MILD PAIN Ondansetron HCl (Ondansetron Hcl/Pf 4 Mg/2 Ml Sdv) 4 mg IVP Q6H PRN PRN Reason: Nausea / Vomiting Last Admin: 05/25/20 02:06 Dose: 4 mg Documented by: Propranolol HCl (Propranolol Hcl 20 Mg Tablet) 10 mg PO BID [facility] Last Admin: 05/25/20 08:54 Dose: 10 mg Documented by: Sertraline HCl (Sertraline Hcl 50 Mg Tablet) 25 mg PO DAILY [facility] Last Admin: 05/25/20 08:54 Dose: 25 mg Documented by: Valacyclovir HCl (Valacyclovir Hcl 500 Mg Tablet) 1,000 mg PO DAILY [facility] Last Admin: 05/25/20 08:54 Dose: 1,000 mg Documented by: PREDNISONE 10 MG PO BID WITH FOOD X 5 DAYS ( START 05/26/2020) OMNICEF 300 MG PO BID X 7 DAYS ( START 05/26/2020 ) DOXYCYCLINE 100 MG PO BID X 7 DAYS ( START @ 800 PM TODAY) ALLERGIES No Known Allergies Allergy (Verified 05/23/20 10:26) DISCONTINUED MEDICATIONS NONE NEW PRESCRIPTIONS: 1). PREDNISONE 10 MG PO BID WITH FOOD X 5 DAYS ( START 05/26/2020) 2). OMNICEF 300 MG PO BID X 7 DAYS ( START 05/26/2020 ) 3).DOXYCYCLINE 100 MG PO BID X 7 DAYS ( START @ 800 PM TODAY) 4). ALBUTEROL HFA 2 PUFFS TID ( START THIS AFTERNOON) SMOKING: N/A DISEASE SPECIFIC EDUCATION: PNEUMONIA STEROID USE COVID 19 LAB REVIEW: 05/25/20 04:50 05/25/20 04:50 05/25/20 04:50: Sodium 136.8, Potassium 3.96, Chloride 107.7 H, Carbon Dioxide 21.9 L, Anion Gap 11.16, BUN 15.2, Creatinine 0.71, Estimated GFR (MDRD) 90.00, BUN/Creatinine Ratio 21.40, Glucose 85.9, Calcium 9.18, Total Bilirubin 0.31, AST 20.6, ALT 21.3, Alkaline Phosphatase 54.3, Total Protein 6.77, Albumin 3.81, Globulin 2.96, Albumin/Globulin Ratio 1.28 05/25/20 04:50: WBC 13.44 H, RBC 4.10 L, Hgb 12.6, Hct 37.2, MCV 90.7, MCH 30.7, MCHC 33.9, RDW Coeff of Luis 13.1, Plt Count 274, Immature Gran % (Auto) 0.5, Neut % (Auto) 63.7, Lymph % (Auto) 27.6, [place] % (Auto) 7.0, Eos % (Auto) 0.8, Baso % (Auto) 0.4, Neut # (Auto) 8.6 H, Lymph # (Auto) 3.7 H, [place] # (Auto) 0.9, Eos # (Auto) 0.1, Baso # (Auto) 0.1, Immature Gran # (Auto) 0.1 PLAN: DISCHARGE HOME : TODAY, THURSDAY, MAY 25 ACTIVITY: UP TOLERATED, NO STRENUOUS ACTIVITY, FREQUENT REST PERIODS STAY HOME UNTIL DR. DUFF'S OFFICE VISIT CONTINUE TO RECOGNIZE AND FOLLOW SOCIAL/PHYSICAL DISTANCING, COVID 19 PRECAUTIONS DO NOT RETURN TO WORK UNTIL RELEASED BY ROXANA ADAMS AT May OFFICE VISIT DIET: REGULAR MD FOLLOW UPs : SEE DR. DUFF/BHAVYA GARCIA APRN/HANK GONSALEZ APRN IN THE OFFICE ON SUNDAY, MAY 31, 2020@ 1045 DR. ZAHEER JONES ON JUNE 02, 2020 ( DESIGNATED TIME) CODE STATUS: FULL CODE MRS HANDY REMAINS ALERT AND ORIENTED X 4. SHE IS UP TOLERATED WITH NO ASSISTIVE DEVICE. MINIMAL WEAKNESS. NO DIZZINESS. LUNGS ARE CLEAR TO AUSCULTATION. SHE DOES HAVE AN OCCASIONAL DRY COUGH. SKIN WARM AND DRY AND INTACT EXCEPT FOR SUTURES TO RT FOOT AND LT BUTTOCKS THAT ARE WNL. NUTRITIONAL AND FLUID INTAKE ARE FAIR TO GOOD. SHE STATED SHE WAS READY TO GO HOME. MD BHAVYA MURRY APRN ALYCE HANNAN, APRN
--- NOTE | 2020-05-25 11:34 | HP ---
DATE OF SERVICE: 05/23/2020 REASON FOR HOSPITALIZATION/HISTORY OF PRESENT ILLNESS: 40 year old white female who presents to the ER. She had had several mole excised last week under general by Dr. Rosa Isela Queen and she states that she felt terrible since her surgery. She has a cough. She said that she has had saturations down into 87% since last week. PAST MEDICAL HISTORY: COVID in October of 2019 Depression with anxiety LVH by echo Dyslipidemia Cheng's esophagus Fibromyalgia Degenerative joint disease of L spine Migraine headaches History of SVT IBS Obesity PAST SURGICAL HISTORY: Partial hysterectomy Endoscopy and colonoscopy 03/16/[address] Stephens REVIEW OF SYSTEMS: CONSTITUTIONAL: No night sweats. No fatigue, malaise, lethargy. Fever. Weakness. HEENT: Eyes: No visual changes. No eye pain. No eye discharge. ENT: No runny nose. No epistaxis. No sinus pain. No sore throat. No odynophagia. No ear pain. No congestion. RESPIRATORY: Cough, no congestion. No hemoptysis. No shortness of breath. CARDIOVASCULAR: No angina symptoms. No CHF symptoms. No atypical chest pain for CAD. No palpitations. No PND. No orthopnea. GASTROINTESTINAL: No abdominal pain. No nausea or vomiting. No diarrhea or constipation. No hematemesis. No hematochezia. GENITOURINARY: No urgency. No frequency. No dysuria. No hematuria. No obstructive symptoms. No discharge. No pain. No significant abnormal bleeding. MUSCULOSKELETAL: No musculoskeletal pain. No joint swelling. No arthritis. NEUROLOGICAL: No headache. No neck pain. No syncope. No seizures. No dizziness. PSYCHIATRIC: Not anxious. No depression. No suicidal thoughts. No homicidal thoughts. SKIN: No rash. No lesions. No wounds. ENDOCRINE: No unexplained weight loss. No weight gain. HEMATOLOGIC/LYMPHATIC: No anemia. No purpura. No petechiae. No prolonged or excessive bleeding. No palpable lymph nodes. PERSONAL/FAMILY/SOCIAL HISTORY: She lives at home with her and son. Non-smoker and no alcohol or illicit drug use. MEDICATIONS: Propanolol 10mg BID Zoloft 25mg PO daily Valtrex 1000mg PO daily Relpax 40mg PO BID PRN Emgality 120mg INJ monthly Ubrelvy 50mg PO PRN ALLERGIES: No known allergies PHYSICAL EXAMINATION: VITAL SIGNS: Temperature 99.2, heart rate 74, respiratory rate 17, blood pressure 118/84 and pulse ox 96%. HEENT: Head normocephalic, atraumatic. Eyes: Extraocular muscles are intact. Pupils are equal, round and reactive to light and accommodation. Ears: No lesions. Nose appeared normal. Throat: No exudate or erythema. NECK: Supple. No JVD, no carotid bruit. No lymphadenopathy or thyromegaly. LUNGS: Diminished breath sounds with rales in the left lower lobe. Clear to auscultation. Percussion note normal. Chest symmetrical. HEART: S1, S2, no S3. No murmur. No cyanosis or clubbing. No ascites. Pulses: Dorsalis pedis and posterior tibial pulses +1 to +2 bilaterally. ABDOMEN: Soft. Nontender. Bowel sounds active. No CVA tenderness. No mass felt. EXTREMITIES: No edema. Full range of motion of all extremities, equal. NEUROLOGIC: No focal deficit. Cranial nerves II through XII are grossly intact. No headache, no double vision or headache. SKIN: Not dry. Intact. Turgor - normal. LYMPHATIC: No palpable lymph nodes/no lymphedema. MUSCULOSKELETAL: Normal joints with no swelling. Muscle tone is normal. LABS: Sodium 137, potassium 4.2, BUN 12, creatinine 0.77, AST 25, ALT 21, total protein 7.08. Lactic acid 1.12, WBC 10.4, hgb 13.1, hct 39.1, plt count 249. Chest CT shows mild patchy ground in the left lower lobe. PCR was negative for COVID. ASSESSMENT: 1. Left lower lobe pneumonia 2. Generalized weakness 3. Fever PLAN: 1. We will admit 2. Routine telemetry orders 3. No cardiac markers 4. CBC and CMP daily 5. Start Rocephin 1 gram IV daily 6. Doxycycline 100mg IV Q 12 hours 7. Continue all home medications 8. Regular diet 9. Continuous pulse oximetry 10.Oxygen at 1-2 liters at needed 11.Follow closely. TIME SPENT: More than 70 minutes. MTDD
--- NOTE | 2020-05-25 11:46 | PN ---
DATE OF SERVICE: 05/24/2020 SUBJECTIVE: The patient was seen and examined with the Nurse Practitioner. The patient's condition is improving. Her color looks a lot better. All the labs are stable. She is being given antibiotics for possible infiltrate on the left lower lobe. TIME SPENT: More than 30 minutes. Plan and coordination of the patient's care discussed in the presence of nurse. SHANI
--- NOTE | 2020-05-26 14:40 | DS ---
DATE OF SERVICE: 05/25/2020 FINAL DIAGNOSIS: LT LOWER LOBE PNEUMONIA GENERAL WEAKNESS HISTORY: CARDIAC DYSRHYTHMIAS SVTs COVID 10/2019 FIBROMYALGIA ASTHMATIC BRONCHITIS PLEURODYNIA HYPERLIPIDEMIA MAJOR DEPRESSIVE DISORDER LOW BACK PAIN/LUMBAGO OBESITY OSTEOARTHRITIS OVARIAN CYST, LT ABDOMINAL PAIN MIGRAINE HEADACHES PROCEDURES: MAMMOGRAM MOLES SURGICALLY REMOVED RT FOOT AND LT BUTTOCK LAST VITALS: Temp Pulse Resp BP Pulse Ox 98.1 F 73 18 109/70 94 L 05/25/20 05:49 05/25/20 05:49 05/25/20 05:49 05/25/20 05:49 05/25/20 05:49 DISCHARGE INSTRUCTIONS: DISCHARGE HOME : TODAY, THURSDAY, MAY 25. MD FOLLOW UPs : SEE DR. DUFF/BHAVYA GARCIA APRN/HANK GONSALEZ APRN IN THE OFFICE ON SUNDAY, MAY 31, 2020@ 1045. DR. ZAHEER JONES ON JUNE 02, 2020 ( DESIGNATED TIME). CODE STATUS: FULL CODE. TAKE THESE MEDICATIONS AT HOME: Albuterol Sulfate (Albuterol Sulfate (Ventolin Hfa) 18 Gm 1 Puff With Spacer) 2 puff IH TID [facility] -- ( NEW) Last Admin: 05/25/20 05:45 Dose: 2 puff Documented by: Non-Formulary Medication (Eletriptan [Relpax]) 40 mg PO BID PRN PRN Reason: Mild Pain Non-Formulary Medication (Emgality) 120 mg SUBCUT MONTHLY [facility] Non-Formulary Medication (Ubrogepant [Ubrelvy]) 50 mg PO ONCE PRN PRN Reason: MILD PAIN Ondansetron HCl (Ondansetron Hcl/Pf 4 Mg/2 Ml Sdv) 4 mg IVP Q6H PRN PRN Reason: Nausea / Vomiting Last Admin: 05/25/20 02:06 Dose: 4 mg Documented by: Propranolol HCl (Propranolol Hcl 20 Mg Tablet) 10 mg PO BID [facility] Last Admin: 05/25/20 08:54 Dose: 10 mg Documented by: Sertraline HCl (Sertraline Hcl 50 Mg Tablet) 25 mg PO DAILY [facility] Last Admin: 05/25/20 08:54 Dose: 25 mg Documented by: Valacyclovir HCl (Valacyclovir Hcl 500 Mg Tablet) 1,000 mg PO DAILY [facility] Last Admin: 05/25/20 08:54 Dose: 1,000 mg Documented by: PREDNISONE 10 MG PO BID WITH FOOD X 5 DAYS ( START 05/26/2020) OMNICEF 300 MG PO BID X 7 DAYS ( START 05/26/2020 ) DOXYCYCLINE 100 MG PO BID X 7 DAYS ( START @ 800 PM TODAY) ALLERGIES: No Known Allergies Allergy (Verified 05/23/20 10:26) DISCONTINUED MEDICATIONS: NONE NEW PRESCRIPTIONS: 1). PREDNISONE 10 MG PO BID WITH FOOD X 5 DAYS ( START 05/26/2020) 2). OMNICEF 300 MG PO BID X 7 DAYS ( START 05/26/2020 ) 3).DOXYCYCLINE 100 MG PO BID X 7 DAYS ( START @ 800 PM TODAY) 4). ALBUTEROL HFA 2 PUFFS TID ( START THIS AFTERNOON) SMOKING: N/A DISEASE SPECIFIC EDUCATION: PNEUMONIA STEROID USE COVID 19 LAB REVIEW: 05/25/20 04:50 05/25/20 04:50 05/25/20 04:50: Sodium 136.8, Potassium 3.96, Chloride 107.7 H, Carbon Dioxide 21.9 L, Anion Gap 11.16, BUN 15.2, Creatinine 0.71, Estimated GFR (MDRD) 90.00, BUN/Creatinine Ratio 21.40, Glucose 85.9, Calcium 9.18, Total Bilirubin 0.31, AST 20.6, ALT 21.3, Alkaline Phosphatase 54.3, Total Protein 6.77, Albumin 3.81, Globulin 2.96, Albumin/Globulin Ratio 1.28 05/25/20 04:50: WBC 13.44 H, RBC 4.10 L, Hgb 12.6, Hct 37.2, MCV 90.7, MCH 30.7, MCHC 33.9, RDW Coeff of Luis 13.1, Plt Count 274, Immature Gran % (Auto) 0.5, Neut % (Auto) 63.7, Lymph % (Auto) 27.6, [place] % (Auto) 7.0, Eos % (Auto) 0.8, Baso % (Auto) 0.4, Neut # (Auto) 8.6 H, Lymph # (Auto) 3.7 H, [place] # (Auto) 0.9, Eos # (Auto) 0.1, Baso # (Auto) 0.1, Immature Gran # (Auto) 0.1 ACTIVITY: UP TOLERATED, NO STRENUOUS ACTIVITY, FREQUENT REST PERIODS STAY HOME UNTIL DR. DUFF'S OFFICE VISIT CONTINUE TO RECOGNIZE AND FOLLOW SOCIAL/PHYSICAL DISTANCING, COVID 19 PRECAUTIONS DO NOT RETURN TO WORK UNTIL RELEASED BY ROXANA ADAMS AT May OFFICE VISIT DIET: REGULAR HOSPITAL COURSE: The patient was hospitalized when she came to the emergency room with complaint of shortness of breath and cough. She noted that her saturation was low. She had intubation that was done because of dermatological procedure that was done on her. On further testing the patient had a CT angiogram which didn't show any pulmonary embolism but showed possibility of left lower lobe infiltrate. She was given IV antibiotics and steroids. Her condition improved and she felt better. She is going to be discharged home on steroids, Omnicef and bronchodilator inhaler. She is supposed to rest at home for next 3-4 days and she is going to be seen on followup on Sunday. After that she will be released to go back to work and multiple other medical problems like possibility of asthma, fibromyalgia, depression and history of SVT. The patient had COVID 19 months ago. This time her COVID test was negative. TIME SPENT: More than 60 minutes. ANNALISED
--- NOTE | 2020-05-26 14:40 | PN ---
05/23/2020: Level 5 05/24/2020: Intermediate 05/25/2020: D as in discharge MTDD
--- NOTE | 2020-05-26 14:43 | PN ---
DATE OF SERVICE: 05/25/2020 SUBJECTIVE: The patient was seen and examined with Nurse Practitioner. The patient is up and about. Her vital are stable. The patient's condition is improving. Her bronchitis symptoms and left lower lobe infiltrate with early pneumonia seems to have clinically resolved. PHYSICAL EXAMINATION: HEENT: Head normocephalic, atraumatic. Eyes: Extraocular muscles are intact. Pupils are equal, round and reactive to light and accommodation. Ears: No lesions. Nose appeared normal. Throat: No exudate or erythema. NECK: Supple. No JVD, no carotid bruit. No lymphadenopathy or thyromegaly. LUNGS: Decreased breath sounds but clear to auscultation. Percussion note normal. Chest symmetrical. HEART: S1, S2, no S3. No murmurs. No cyanosis or clubbing. No ascites. Pulses: Dorsalis pedis and posterior tibial pulses +1 to +2 bilaterally. ABDOMEN: Soft. Nontender. Bowel sounds active. No CVA tenderness. No mass felt. EXTREMITIES: No edema. Full range of motion of all extremities, equal. NEUROLOGIC: No focal deficit. Cranial nerves II through XII are grossly intact. No headache. No double vision. SKIN: Not dry. Intact. Turgor - normal. LYMPHATIC: No palpable lymph nodes/no lymphedema. MUSCULOSKELETAL: Normal joints with no swelling. Muscle tone is normal. CONDITION: Otherwise stable TIME SPENT: More than 30 minutes. Plan and coordination of the patient's care discussed in the presence of nurse. SHANI
== END 2020-05-25 12:15 | disposition home or self-care (01) ==
LOC: ED 10:10 → INTOOBSV 13:12 → MEDSURG A 13:12
PROVIDERS: ADMIT Internal Medicine; ATTEND Internal Medicine
DX: E78.5 Hyperlipidemia, unspecified; J06.9 Acute upper respiratory infection, unspecified; R53.1 Weakness; Z20.822 Contact with and (suspected) exposure to COVID-19; E66.9 Obesity, unspecified; R05 Cough; R06.02 Shortness of breath; R50.9 Fever, unspecified

== ENCOUNTER 2021-10-03 10:36 | Inpatient (IN) ==
[2021-10-03] MEDS ORDERED: NITROSTAT SL PRN (13:30)
[2021-10-03] MEDS ORDERED: TYLENOL PO PRN (13:30)
[2021-10-03] MEDS ORDERED: ATROPINE SULFATE PFS IVP PRN (13:30)
[2021-10-03] MEDS ORDERED: LOMOTIL PO PRN (13:33)
[2021-10-03] MEDS ORDERED: ROCEPHIN 1 GM/50 ML D5W 1 GM/50 ML BAG IV ONE (13:34)
[2021-10-03 13:45] LABS: BASOPHILS # (AUTO) 0.1 K/uL (0-0.2); BASOPHILS % (AUTO) 0.4 % (0.0-3.0); EOSINOPHILS # (AUTO) 0.1 K/ul (0.0-0.7); EOSINOPHILS % (AUTO) 1.1 % (0.0-7.0); HEMATOCRIT 42.6 % (37.0-47.0); HEMOGLOBIN 14.6 g/dl (12.0-16.0); IMMATURE GRANULOCYTE % (AUTO) 0.4 % (0.0-5.0); LYMPHOCYTES # (AUTO) 3.3 K/uL (0.60-3.4); LYMPHOCYTES % (AUTO) 29.9 (10.0-50.0); MEAN CORPUSCULAR HEMOGLOBIN 31.1 pg (27.0-31.0); MEAN CORPUSCULAR HGB CONC 34.3 (31.8-35.4); MEAN CORPUSCULAR VOLUME 90.8 fl (81.0-99.0); MONOCYTES # (AUTO) 0.7 K/uL (0.4-2.0); MONOCYTES % (AUTO) 5.9 (0-10); NEUTROPHILS # (AUTO) 6.9 K/ul (2.0-6.9); NEUTROPHILS % (AUTO) 62.3 % (42.2-75.2); PLATELET COUNT 248 10^3/uL (140-440); RDW COEFFICIENT OF VARIATION 12.7 % (11.6-14.8); RED BLOOD COUNT 4.69 10^6/ul (4.20-5.40); WHITE BLOOD COUNT 11.12 K/ul (4.6-10.2)
[2021-10-03 13:47] VITALS: BMI 40.0
[2021-10-03 13:56] LABS: ALANINE AMINOTRANSFERASE 30.2 U/L (0-35); ALBUMIN 4.35 g/dL (3.5-5.0); ALKALINE PHOSPHATASE 66.6 U/L (38-126); ASPARTATE AMINO TRANSFERASE 26.2 U/L (14-36); BILIRUBIN,TOTAL 0.6 mg/dL (0.2-1.3); BLOOD UREA NITROGEN 10.9 mg/dL (7-17); CALCIUM 9.37 mg/dL (8.4-10.2); CARBON DIOXIDE 26.4 mmol/L (22-30.0); CHLORIDE 106.6 mmol/L (98-107); CREATININE 0.88 mg/dL (0.60-1.30); GLUCOSE 74.2 mg/dL (74-106); POTASSIUM 3.46 mmol/L (3.5-5.1); SODIUM 141.5 mmol/L (134.5-145); TOTAL PROTEIN 7.61 g/dL (6.3-8.2)
[2021-10-03] MEDS ORDERED: SODIUM CHLORIDE 1,000 ML IV SCH (14:00)
[2021-10-03] MEDS ORDERED: ELETRIPTAN 40 MG PO PRN (14:01)
[2021-10-03] MEDS ORDERED: VENTOLIN HFA (PER PUFF-WITH SPACER) IH PRN (14:01)
[2021-10-03] MEDS ORDERED: ATIVAN PO PRN (14:01)
--- NOTE | 2021-10-03 14:19 | DI ---
EXAM: Single frontal view of the chest HISTORY: Dehydration. COMPARISON: chest x-ray 07/04/2021 FINDINGS: Cardiomediastinal silhouette is unremarkable. There is no pneumothorax or effusion. There is no consolidation, nodule or mass. The osseous structures are unremarkable. IMPRESSION: No acute cardiopulmonary process
[2021-10-03] MEDS ORDERED: PHENERGAN 25 MG/ML VIAL ONE (14:53)
[2021-10-03] MEDS: PHENERGAN 25 MG/ML VIAL 12.5 MG in SODIUM CHLORIDE 50 ML IV PRN (14:58)
[2021-10-03] MEDS ORDERED: PROPANOLOL PO SCH (15:00)
[2021-10-03] MEDS: INDERAL PO SCH ×2 (16:32→20:09)
[2021-10-03] MEDS: ZOFRAN 4 MG/2 ML IVP PRN ×2 (16:34→23:05)
[2021-10-03] MEDS: K-DUR PO SCH (20:00)
[2021-10-03] MEDS: PROTONIX IV IVP SCH (20:21)
[2021-10-03] MEDS ORDERED: SODIUM CHLORIDE 0.9%-KCL 20 MEQ 1,000 ML IV SCH (20:30)
[2021-10-04 05:32] LABS: BASOPHILS # (AUTO) 0.1 K/uL (0-0.2); BASOPHILS % (AUTO) 0.9 % (0.0-3.0); EOSINOPHILS # (AUTO) 0.1 K/ul (0.0-0.7); EOSINOPHILS % (AUTO) 1.9 % (0.0-7.0); HEMATOCRIT 39.2 % (37.0-47.0); HEMOGLOBIN 12.6 g/dl (12.0-16.0); IMMATURE GRANULOCYTE % (AUTO) 0.3 % (0.0-5.0); LYMPHOCYTES # (AUTO) 2.8 K/uL (0.60-3.4); LYMPHOCYTES % (AUTO) 41.5 (10.0-50.0); MEAN CORPUSCULAR HEMOGLOBIN 30.9 pg (27.0-31.0); MEAN CORPUSCULAR HGB CONC 32.1 (31.8-35.4); MEAN CORPUSCULAR VOLUME 96.1 fl (81.0-99.0); MONOCYTES # (AUTO) 0.4 K/uL (0.4-2.0); MONOCYTES % (AUTO) 6.4 (0-10); NEUTROPHILS # (AUTO) 3.3 K/ul (2.0-6.9); PLATELET COUNT 175 10^3/uL (140-440); RDW COEFFICIENT OF VARIATION 12.9 % (11.6-14.8); RED BLOOD COUNT 4.08 10^6/ul (4.20-5.40); WHITE BLOOD COUNT 6.75 K/ul (4.6-10.2)
[2021-10-04 05:45] LABS: ALBUMIN 3.43 g/dL (3.5-5.0); ALKALINE PHOSPHATASE 43.1 U/L (38-126); ASPARTATE AMINO TRANSFERASE 30.6 U/L (14-36); BILIRUBIN,TOTAL 0.57 mg/dL (0.2-1.3); BLOOD UREA NITROGEN 9.8 mg/dL (7-17); CALCIUM 8.72 mg/dL (8.4-10.2); CARBON DIOXIDE 21.4 mmol/L (22-30.0); CREATININE 0.81 mg/dL (0.60-1.30); GLUCOSE 78.6 mg/dL (74-106); POTASSIUM 4.08 mmol/L (3.5-5.1); SODIUM 140.2 mmol/L (134.5-145); TOTAL PROTEIN 6.26 g/dL (6.3-8.2)
[2021-10-04 06:23] LABS: BILIRUBIN,URINE Negative (NEGATIVE); CLARITY,URINE Clear (CLEAR); COLOR,URINE Yellow (YELLOW); GLUCOSE, URINE (UA) Negative (NEGATIVE); KETONES,URINE Negative (NEGATIVE); LEUKOCYTE ESTERASE ,URINE Negative (NEGATIVE); NITRITE,URINE Negative (NEGATIVE); PH,URINE 5.5 (5-9); PROTEIN,URINE Negative (NEGATIVE); URINE, BLOOD Negative (NEGATIVE); UROBILINOGEN,URINE 0.2 (0.2)
[2021-10-04] MEDS ORDERED: PHENERGAN 25 MG/ML VIAL ONE (07:17)
[2021-10-04] MEDS: PHENERGAN 25 MG/ML VIAL 12.5 MG in SODIUM CHLORIDE 50 ML IV PRN (07:24)
[2021-10-04] MEDS ORDERED: SODIUM CHLORIDE 500 ML IV SCH (08:30)
[2021-10-04] MEDS ORDERED: PHENERGAN 25 MG/ML VIAL 25 MG in SODIUM CHLORIDE 50 ML IV PRN (08:31)
--- NOTE | 2021-10-04 08:39 | PCM.PROG ---
Attending Provider: ATTENDING PROVIDER: Dr. ARABELLA GARCIA This patient is seen with Arabella Garcia, Nurse Practitioner. DATE OF SERVICE: 10/04/21 SUBJECTIVE: This 41 year old /WHITE F was hospitalized 10/03/21. Vomiting last night, still achy with headache this morning. Had diarrhea and low grade temperature at home. No diarrhea since yesterday. Will do GI panel. REVIEW OF SYSTEMS: CONSTITUTIONAL: No night sweats. No fatigue, malaise, lethargy. No fever or chills. Weakness. HEENT: Eyes: No visual changes. No eye pain. No eye discharge. ENT: No runny nose. No epistaxis. No sinus pain. No odynophagia. No congestion. RESPIRATORY: No cough, no congestion. No hemoptysis. No shortness of breath. CARDIOVASCULAR: No angina symptoms. No CHF symptoms. No atypical chest pain for CAD. No palpitations. No orthopnea.. GASTROINTESTINAL: No abdominal pain. Nausea. No diarrhea or constipation. No hematemesis. No hematochezia. GENITOURINARY: No urgency. No frequency. No dysuria. No hematuria. No obstructive symptoms. No discharge. No pain. No significant abnormal bleeding. MUSCULOSKELETAL: No musculoskeletal pain; no joint swelling. Achy. NEUROLOGICAL: Awake, alert, oriented to time, place and person. No headache. No neck pain. No syncope. No seizures. No dizziness. PSYCHIATRIC: Not anxious. No depression. No suicidal thoughts. No homicidal thoughts. SKIN: No rash. No lesions. No wounds. ENDOCRINE: No unexplained weight loss. No weight gain. HEMATOLOGIC/LYMPHATIC: No anemia. No purpura. No petechiae. No prolonged or excessive bleeding. No palpable lymph nodes. PHYSICAL EXAMINATION: GENERAL: The patient is awake, alert and oriented, lying in bed in no distress. VITAL SIGNS: Temperature 97.9 F, Pulse 72, Respiratory Rate 16, BP 127/81, Pulse Ox 95% HEENT: Head normocephalic, atraumatic. Eyes: Extraocular muscles are intact. Pupils are equal, round and reactive to light and accommodation. Ears: No lesions. Nose appeared normal. Throat: No exudate or erythema. NECK: Supple. No JVD, no carotid bruit. No lymphadenopathy or thyromegaly. LUNGS: Clear to auscultation. Percussion note normal. Chest symmetrical. HEART: S1, S2, no S3. No murmurs. No cyanosis or clubbing. No ascites. Pulses: Dorsalis pedis and posterior tibial pulses +1 to +2 both sides. ABDOMEN: Soft. Non-tender. Bowel sounds active. No CVA tenderness. No mass felt. EXTREMITIES: No edema. Full range of motion of all extremities, equal. NEUROLOGIC: No focal deficit. Cranial nerves II through XII are grossly intact. No headache. No double vision. SKIN: Not dry. Intact. Turgor-normal. LYMPHATIC: No palpable lymph nodes/no lymphedema. MUSCULOSKELETAL: Normal joints with no swelling. Muscle tone is normal. LAB REVIEW: 10/04/21 05:19 10/04/21 05:19 10/04/21 06:18: Urine Color Yellow, Urine Clarity Clear, Urine pH 5.5, Ur Specific [place] >=1.030, Urine Protein Negative, Urine Glucose (UA) Negative, Urine Ketones Negative, Urine Blood Negative, Urine Nitrite Negative, Urine Bilirubin Negative, Urine Urobilinogen 0.2, Ur Leukocyte Esterase Negative 10/04/21 05:19: Sodium 140.2, Potassium 4.08, Chloride 111.0 H, Carbon Dioxide 21.4 L, Anion Gap 11.88, BUN 9.8, Creatinine 0.81, Estimated GFR (MDRD) 77.00, BUN/Creatinine Ratio 12.09, Glucose 78.6, Calcium 8.72, Total Bilirubin 0.57, AST 30.6, ALT 29.0, Alkaline Phosphatase 43.1, Total Protein 6.26 L, Albumin 3.43 L, Globulin 2.83, Albumin/Globulin Ratio 1.21 10/04/21 05:19: WBC 6.75, RBC 4.08 L, Hgb 12.6, Hct 39.2, MCV 96.1 D, MCH 30.9, MCHC 32.1, RDW Coeff of Luis 12.9, Plt Count 175, Immature Gran % (Auto) 0.3, Neut % (Auto) 49.0, Lymph % (Auto) 41.5, [place] % (Auto) 6.4, Eos % (Auto) 1.9, Baso % (Auto) 0.9, Neut # (Auto) 3.3, Lymph # (Auto) 2.8, [place] # (Auto) 0.4, Eos # (Auto) 0.1, Baso # (Auto) 0.1, Immature Gran # (Auto) 0.0 10/03/21 13:39: Sodium 141.5, Potassium 3.46 L, Chloride 106.6, Carbon Dioxide 26.4, Anion Gap 11.96, BUN 10.9, Creatinine 0.88, Estimated GFR (MDRD) 70.00, BUN/Creatinine Ratio 12.38, Glucose 74.2, Calcium 9.37, Total Bilirubin 0.60, AST 26.2, ALT 30.2, Alkaline Phosphatase 66.6, Total Protein 7.61, Albumin 4.35, Globulin 3.26, Albumin/Globulin Ratio 1.33 10/03/21 13:39: WBC 11.12 H, RBC 4.69, Hgb 14.6, Hct 42.6, MCV 90.8, MCH 31.1 H, MCHC 34.3, RDW Coeff of Luis 12.7, Plt Count 248, Immature Gran % (Auto) 0.4, Tessie t % (Auto) 62.3, Lymph % (Auto) 29.9, [place] % (Auto) 5.9, Eos % (Auto) 1.1, Baso % (Auto) 0.4, Neut # (Auto) 6.9, Lymph # (Auto) 3.3, [place] # (Auto) 0.7, Eos # (Auto) 0.1, Baso # (Auto) 0.1, Immature Gran # (Auto) 0.0 10/03/21 12:22: SARS CoV-2 RNA Rapid SHERLEY Negative ASSESSMENT: Please see below. 1. Acute gastroenteritis 2. Dehydration 3. Hypokalemia 4. Viral syndrome 5. Headache with history of migraine PLAN: 1. Zofran scheduled Q 6 hours 2. GI panel 3. Toradol 30mg IV Q 8 PRN 4. Discontinue IV Potassium 5. Continue fluids at 50cc Plan and coordination of the patient's care discussed in the presence of Strategy Director and nurse. SCRIBED BY: SHANNAN VAZQUEZ Medical Customer Service Representative scribed while in presence of service performed by Dr. Alvares/Arabella Garcia APRN on 10/04/21 ([id number])
[2021-10-04] MEDS: PROTONIX IV IVP SCH ×2 (08:48→20:27)
[2021-10-04] MEDS: ZOFRAN 4 MG/2 ML IVP SCH ×3 (08:48→20:27)
[2021-10-04] MEDS: SODIUM CHLORIDE 1,000 ML IV SCH (09:31)
[2021-10-04] MEDS: TORADOL IVP PRN (11:14)
[2021-10-04] MEDS ORDERED: COMPAZINE IVP ONE (11:43)
[2021-10-04] MEDS: K-DUR PO SCH ×2 (12:28→16:25)
[2021-10-04] MEDS: INDERAL PO SCH ×3 (12:28→20:27)
[2021-10-04] MEDS: LIPITOR PO SCH (12:29)
[2021-10-04] MEDS: ZOLOFT PO SCH (12:29)
[2021-10-04] MEDS: VALTREX PO SCH (12:29)
--- NOTE | 2021-10-04 12:55 | HP ---
DATE OF SERVICE: 10/03/21 REASON FOR HOSPITALIZATION/HISTORY OF PRESENT ILLNESS: Nausea/vomiting severe last week. Went to ER yesterday still with nausea, vomiting and diarrhea. Not eating or drinking only urinating one time in 24 hours. PAST MEDICAL HISTORY: Dyslipidemia LVH by echo Fibromyalgia History of SVT Migraine DJD spine Bronchial asthma REVIEW OF SYSTEMS: CONSTITUTIONAL: Fever low, Fatigue. HEENT: No sinus drainage, no sore throat. RESPIRATORY: No cough, no congestion. CARDIOVASCULAR: No atypical chest pain for coronary artery disease. No angina, CHF symptoms, palpitations or shortness of breath. GASTROINTESTINAL: No melena. Abdominal pain. No GERD. Decreased urine output. Diarrhea. Vomiting. GENITOURINARY: No hematuria, no prostatism, no polyuria. MINE DEVELOPMENT ENGINEER: No blackout, no dizziness, no headache, no double vision. MUSCULOSKELETAL: No osteoarthritis pain, no joint swelling. ENDOCRINE: No weight loss, no weight gain. SKIN: Not dry, no rash. PSYCHIATRIC: Not anxious, no depression, no suicidal thoughts, no homicidal thoughts. FAMILY HISTORY: Father living Mother living MEDICATIONS: Inderal 20mg TID Valtrex 50mg PO daily Relpax 40mg PO PRN Zoloft 100mg PO daily Emgality shot one month Botox injection Q 3 months Protonix 40mg PO daily Ativan 0.5mg HS Albuterol inhalation Lipitor 20mg PO daily ALLERGIES: Cymbalta Topamax PHYSICAL EXAMINATION: GENERAL APPEARANCE: Oriented times three. HEENT: Pale, dry mucous membranes. NECK: No JVP, no bruits. RESPIRATORY: Lungs are clear. CARDIOVASCULAR: S1, S2, no S3, no murmur. No cyanosis, clubbing. No ascites. GI/ABDOMEN: No tenderness. Bowel sounds are active. EXTREMITIES: edema, pulses +1, equal. MINE DEVELOPMENT ENGINEER: Deep tendon reflexes, sensory, motor and gait all normal. RECTAL/PELVIC/PROSTATE: . ASSESSMENT: 1. Acute gastroenteritis 2. Dehydration 3. Post COVID fatigue 4. Obesity 5. COVID 11/12 6. Depression 7. Cheng's esophagus 8. LVH by echo 09/12 9. Dyslipidemia 10.Fibromyalgia 11.Partial hysterectomy 12. IBS 13. Bronchial asthma 14. DJD L spine 15. History of SVT 16. Migraine 17. History Von Willebrand 18. Echo 09/13 19. Stress 2020 all negative. PLAN: 1. Admit 2. Will get tested in drive thru 3. Routine telemetry orders, no cardiac markers 4. CBC, CMP now and daily 5. U/A 6. Normal saline IV at 83cc an hour 7. Zofran 4mg IV PRN Q 6 hours 8. Lomotil 2.5mg Q 8 hours PRN PO 9. Protonix 40mg IV Q 12 hours 10.Hold PO Protonix 11.Rocephin 1 gram IV times one 12.Regular diet 13.Phenergan 12.5mg IV Q 8 hours PRN TIME SPENT: More than 70 minutes. MTDD
--- NOTE | 2021-10-04 14:46 | PN ---
DATE OF SERVICE: 10/03/21 SUBJECTIVE: The patient was hospitalized because she has been feeling very poorly. She is dehydration. History and Physical with plan was carried out with the Nurse Practitioner. The patient is going to be hospitalized with IV fluids, Telemetry and do the routine telemetry orders and antibiotics. TIME SPENT: More than 30 minutes. Plan and coordination of the patient's care discussed in the presence of nurse. SHANI
[2021-10-04] MEDS ORDERED: COMPAZINE IVP PRN (15:19)
[2021-10-05] MEDS: ZOFRAN 4 MG/2 ML IVP SCH ×3 (02:37→13:57)
[2021-10-05] MEDS: SODIUM CHLORIDE 1,000 ML IV SCH (04:26)
[2021-10-05 05:41] LABS: BASOPHILS # (AUTO) 0.1 K/uL (0-0.2); BASOPHILS % (AUTO) 0.6 % (0.0-3.0); EOSINOPHILS # (AUTO) 0.2 K/ul (0.0-0.7); EOSINOPHILS % (AUTO) 1.9 % (0.0-7.0); HEMATOCRIT 38.7 % (37.0-47.0); HEMOGLOBIN 13.2 g/dl (12.0-16.0); IMMATURE GRANULOCYTE % (AUTO) 0.4 % (0.0-5.0); LYMPHOCYTES # (AUTO) 1.9 K/uL (0.60-3.4); LYMPHOCYTES % (AUTO) 24.6 (10.0-50.0); MEAN CORPUSCULAR HEMOGLOBIN 31.1 pg (27.0-31.0); MEAN CORPUSCULAR HGB CONC 34.1 (31.8-35.4); MEAN CORPUSCULAR VOLUME 91.3 fl (81.0-99.0); MONOCYTES # (AUTO) 0.5 K/uL (0.4-2.0); NEUTROPHILS # (AUTO) 5.1 K/ul (2.0-6.9); NEUTROPHILS % (AUTO) 66.5 % (42.2-75.2); PLATELET COUNT 192 10^3/uL (140-440); RDW COEFFICIENT OF VARIATION 12.8 % (11.6-14.8); RED BLOOD COUNT 4.24 10^6/ul (4.20-5.40); WHITE BLOOD COUNT 7.72 K/ul (4.6-10.2)
[2021-10-05 05:58] LABS: ALANINE AMINOTRANSFERASE 27.1 U/L (0-35); ALBUMIN 3.64 g/dL (3.5-5.0); ASPARTATE AMINO TRANSFERASE 23.7 U/L (14-36); BILIRUBIN,TOTAL 0.6 mg/dL (0.2-1.3); CALCIUM 8.67 mg/dL (8.4-10.2); CARBON DIOXIDE 24.9 mmol/L (22-30.0); CHLORIDE 106.4 mmol/L (98-107); CREATININE 0.83 mg/dL (0.60-1.30); GLUCOSE 87.9 mg/dL (74-106); POTASSIUM 3.43 mmol/L (3.5-5.1); SODIUM 138.9 mmol/L (134.5-145); TOTAL PROTEIN 6.53 g/dL (6.3-8.2)
[2021-10-05] MEDS: K-DUR PO SCH ×2 (08:50→17:13)
[2021-10-05] MEDS: PROTONIX IV IVP SCH (08:50)
[2021-10-05] MEDS: VALTREX PO SCH (08:51)
[2021-10-05] MEDS: ZOLOFT PO SCH (08:51)
[2021-10-05] MEDS: LIPITOR PO SCH (08:51)
[2021-10-05] MEDS: INDERAL PO SCH ×3 (08:51→20:20)
[2021-10-05] MEDS ORDERED: K-DUR PO ONE (09:56)
[2021-10-05] MEDS: TORADOL IVP PRN (10:30)
[2021-10-05] MEDS ORDERED: TORADOL IM PRN (14:42)
[2021-10-05] MEDS ORDERED: ZOFRAN TAB PO PRN (14:42)
[2021-10-05] MEDS ORDERED: COMPAZINE IM PRN (14:43)
[2021-10-05] MEDS: PROTONIX PO SCH (17:13)
[2021-10-06 05:15] VITALS: BP 105/68; TEMP 97.7
[2021-10-06 05:37] LABS: BASOPHILS # (AUTO) 0.1 K/uL (0-0.2); BASOPHILS % (AUTO) 0.7 % (0.0-3.0); EOSINOPHILS # (AUTO) 0.2 K/ul (0.0-0.7); HEMATOCRIT 38.1 % (37.0-47.0); HEMOGLOBIN 12.9 g/dl (12.0-16.0); IMMATURE GRANULOCYTE % (AUTO) 0.3 % (0.0-5.0); LYMPHOCYTES # (AUTO) 2.2 K/uL (0.60-3.4); LYMPHOCYTES % (AUTO) 32.1 (10.0-50.0); MEAN CORPUSCULAR HEMOGLOBIN 30.7 pg (27.0-31.0); MEAN CORPUSCULAR HGB CONC 33.9 (31.8-35.4); MEAN CORPUSCULAR VOLUME 90.7 fl (81.0-99.0); MONOCYTES # (AUTO) 0.5 K/uL (0.4-2.0); NEUTROPHILS # (AUTO) 3.8 K/ul (2.0-6.9); NEUTROPHILS % (AUTO) 56.9 % (42.2-75.2); PLATELET COUNT 194 10^3/uL (140-440); RDW COEFFICIENT OF VARIATION 12.6 % (11.6-14.8); WHITE BLOOD COUNT 6.69 K/ul (4.6-10.2)
[2021-10-06] MEDS: PROTONIX PO SCH (05:49)
[2021-10-06 05:50] LABS: ALANINE AMINOTRANSFERASE 27.4 U/L (0-35); ALBUMIN 3.48 g/dL (3.5-5.0); ALKALINE PHOSPHATASE 53.9 U/L (38-126); ASPARTATE AMINO TRANSFERASE 25.2 U/L (14-36); BILIRUBIN,TOTAL 0.56 mg/dL (0.2-1.3); BLOOD UREA NITROGEN 8.5 mg/dL (7-17); CALCIUM 8.76 mg/dL (8.4-10.2); CARBON DIOXIDE 25.9 mmol/L (22-30.0); CREATININE 0.85 mg/dL (0.60-1.30); GLUCOSE 91.5 mg/dL (74-106); POTASSIUM 3.81 mmol/L (3.5-5.1); SODIUM 136.9 mmol/L (134.5-145); TOTAL PROTEIN 6.15 g/dL (6.3-8.2)
--- NOTE | 2021-10-06 08:47 | PCM.PROG ---
Attending Provider: ATTENDING PROVIDER: Dr. BHAVYA GARCIA This patient is seen with Bhavya Garcia, Nurse Practitioner. DATE OF SERVICE: 10/06/21 SUBJECTIVE: This 41 year old /WHITE F was hospitalized 10/03/21. No nausea or vomiting. Potassium is back to normal. Blood pressure is better. We will discharge to home today. REVIEW OF SYSTEMS: CONSTITUTIONAL: No night sweats. Fatigue. No fever or chills. Weakness. HEENT: Eyes: No visual changes. No eye pain. No eye discharge. ENT: No runny nose. No epistaxis. No sinus pain. No odynophagia. No congestion. RESPIRATORY: No cough, no congestion. No hemoptysis. No shortness of breath. CARDIOVASCULAR: No angina symptoms. No CHF symptoms. No atypical chest pain for CAD. No palpitations. No orthopnea.. GASTROINTESTINAL: No abdominal pain. Slight nausea. No diarrhea or constipation. No hematemesis. No hematochezia. GENITOURINARY: No urgency. No frequency. No dysuria. No hematuria. No obstructive symptoms. No discharge. No pain. No significant abnormal bleeding. MUSCULOSKELETAL: No musculoskeletal pain; no joint swelling. NEUROLOGICAL: Awake, alert, oriented to time, place and person. No headache. No neck pain. No syncope. No seizures. No dizziness. PSYCHIATRIC: Not anxious. No depression. No suicidal thoughts. No homicidal thoughts. SKIN: No rash. No lesions. No wounds. ENDOCRINE: No unexplained weight loss. No weight gain. HEMATOLOGIC/LYMPHATIC: No anemia. No purpura. No petechiae. No prolonged or exce ssive bleeding. No palpable lymph nodes. PHYSICAL EXAMINATION: GENERAL: The patient is awake, alert and oriented, sitting in bed in no distress. VITAL SIGNS: Temperature 97.7 F, Pulse 72, Respiratory Rate 18, BP 105/68, Pulse Ox 95% HEENT: Head normocephalic, atraumatic. Eyes: Extraocular muscles are intact. Pupils are equal, round and reactive to light and accommodation. Ears: No lesions. Nose appeared normal. Throat: No exudate or erythema. NECK: Supple. No JVD, no carotid bruit. No lymphadenopathy or thyromegaly. LUNGS: Clear to auscultation. Percussion note normal. Chest symmetrical. HEART: S1, S2, no S3. No murmurs. No cyanosis or clubbing. No ascites. Pulses: Dorsalis pedis and posterior tibial pulses +1 to +2 both sides. ABDOMEN: Soft. Non-tender. Bowel sounds active. No CVA tenderness. No mass felt. EXTREMITIES: No edema. Full range of motion of all extremities, equal. NEUROLOGIC: No focal deficit. Cranial nerves II through XII are grossly intact. No headache. No double vision. SKIN: Not dry. Intact. Turgor-normal. LYMPHATIC: No palpable lymph nodes/no lymphedema. MUSCULOSKELETAL: Normal joints with no swelling. Muscle tone is normal. LAB REVIEW: 10/06/21 05:14 10/06/21 05:14 10/06/21 05:14: Sodium 136.9, Potassium 3.81, Chloride 107.0, Carbon Dioxide 25.9, Anion Gap 7.81, BUN 8.5, Creatinine 0.85, Estimated GFR (MDRD) 73.00, BUN/Creatinine Ratio 10.00, Glucose 91.5, Calcium 8.76, Total Bilirubin 0.56, AST 25.2, ALT 27.4, Alkaline Phosphatase 53.9, Total Protein 6.15 L, Albumin 3.48 L, Globulin 2.67, Albumin/Globulin Ratio 1.30 10/06/21 05:14: WBC 6.69, RBC 4.20, Hgb 12.9, Hct 38.1, MCV 90.7, MCH 30.7, MCHC 33.9, RDW Coeff of Luis 12.6, Plt Count 194, Immature Gran % (Auto) 0.3, Neut % (Auto) 56.9, Lymph % (Auto) 32.1, [place] % (Auto) 7.0, Eos % (Auto) 3.0, Baso % (Auto) 0.7, Neut # (Auto) 3.8, Lymph # (Auto) 2.2, [place] # (Auto) 0.5, Eos # (Auto) 0.2, Baso # (Auto) 0.1, Immature Gran # (Auto) 0.0 ASSESSMENT: Please see below. 1. Acute gastroenteritis 2. Hypokalemia 3. Dehydration 4. Headache PLAN: 1. Discharge home 2. Compazine 10mg TID PRN 3. Protonix 40mg BID for next 30 days 4. Instructed to continue with bland diet 5. No Potassium needed at discharge, likely due to diarrhea. Plan and coordination of the patient's care discussed in the presence of Fabrication Mig Welder and nurse. SCRIBED BY: SHANNAN VAZQUEZ Chart Reader scribed while in presence of service performed by Dr. Alvares/Bhavya Garcia APRN on 10/06/21 ([id number])
[2021-10-06] MEDS: ZOLOFT PO SCH (08:54)
[2021-10-06] MEDS: LIPITOR PO SCH (08:54)
[2021-10-06] MEDS: K-DUR PO SCH (08:54)
[2021-10-06] MEDS: VALTREX PO SCH (08:54)
[2021-10-06] MEDS: INDERAL PO SCH (08:54)
--- NOTE | 2021-10-06 09:11 | DS ---
DATE OF SERVICE: 10/06/21 FINAL DIAGNOSIS: 1. Acute gastroenteritis 2. Hypokalemia 3. Dehydration 4. Headache DISCHARGE INSTRUCTIONS: Discharge home. Followup in the office next week with Dr. Alvares. MEDICATIONS AT DISCHARGE: Propanolol 60mg PO TID Zoloft 200mg PO daily Valtrex 500mg PO daily Relpax 40mg PO RN Ubrelvy 100mg PO PRN ProAir HFA 2 puff inhalation PRN Protonix 40mg PO daily Lipitor 20mg PO daily Ativan 0.5mg PO BEDTIME PRN NEW PRESCRIPTIONS: Protonix 40mg PO BID Compazine 10mg PO TID DIET INSTRUCTIONS: As tolerated ACTIVITY: As tolerated HOSPITAL COURSE: 41 year old white female who has been suffering from vomiting and diarrhea for several days and had gone to ER. She has abnormal U/A which looked to be UTI. She was admitted with dehydration, hypokalemia and elevated renal function. She was placed on IV fluids and IV antibiotics until the urine culture came back. She was given Potassium. Vomiting did not resolve with Zofran or Phenergan. She was given IV Compazine. We increased Protonix. She suffered from extreme headache that required Toradol all of which resolved over past few days. She is ready to be discharged home. Labs are back to normal. No vomiting for 24 hours and blood pressure is low but improved. TIME SPENT: More than 60 minutes. MTDD
--- NOTE | 2021-10-06 09:16 | PN ---
DATE OF SERVICE: 10/04/21 SUBJECTIVE: The patient was hospitalized with acute gastroenteritis type of symptoms, mostly acute gastritis. The patient's nausea has subsided. She is eating some. She is feeling a little bit better according to her. Neurological status is stable. Hydration status has improved. The patient's physical exam is practically unremarkable. The patient was seen and examined with the Nurse Practitioner. The patient is going to be continued on Rocephin. TIME SPENT: More than 30 minutes. Plan and coordination of the patient's care discussed in the presence of nurse. SHANI
--- NOTE | 2021-10-06 13:06 | PN ---
DATE OF SERVICE: 10/05/21 SUBJECTIVE: 41 year old white female hospitalized with acute gastroenteritis, dehydration. The patient's condition seems to have improved. She is eating, no nausea noted. REVIEW OF SYSTEMS: CONSTITUTIONAL: No night sweats. No fatigue, malaise, lethargy. No fever or chills. HEENT: Eyes: No visual changes. No eye pain. No eye discharge. ENT: No runny nose. No epistaxis. No sinus pain. No sore throat. No odynophagia. No congestion. RESPIRATORY: No cough, no congestion. No hemoptysis. No shortness of breath. CARDIOVASCULAR: No angina symptoms. No CHF symptoms. No atypical chest pain for CAD. No palpitations. No PND. No orthopnea. GASTROINTESTINAL: No abdominal pain. No nausea or vomiting. No diarrhea or constipation. No hematemesis. No hematochezia. GENITOURINARY: No urgency. No frequency. No dysuria. No hematuria. No obstructive symptoms. No discharge. No pain. No significant abnormal bleeding. MUSCULOSKELETAL: No musculoskeletal pain; no joint swelling. NEUROLOGICAL: No headache. No neck pain. No syncope. No seizures. No dizziness. PSYCHIATRIC: Not anxious. No depression. No suicidal thoughts. No homicidal thoughts. SKIN: No rash. No lesions. No wounds. ENDOCRINE: No unexplained weight loss. No weight gain. HEMATOLOGIC/LYMPHATIC: No anemia. No purpura. No petechiae. No prolonged or excessive bleeding. No palpable lymph nodes. PHYSICAL EXAMINATION: VITAL SIGNS: Temperature 98.1, pulse 70, respiratory rate 16, blood pressure 115/82 and pulse ox 93%. HEENT: Head normocephalic, atraumatic. Eyes: Extraocular muscles are intact. Pupils are equal, round and reactive to light and accommodation. Ears: No lesions. Nose appeared normal. Throat: No exudate or erythema. NECK: Supple. No JVD, no carotid bruit. No lymphadenopathy or thyromegaly. LUNGS: Clear to auscultation. Percussion note normal. Chest symmetrical. HEART: S1, S2, no S3. No murmurs. No cyanosis or clubbing. No ascites. Pulses: Dorsalis pedis and posterior tibial pulses +1 to +2 bilaterally. ABDOMEN: Soft. Nontender. Bowel sounds active. No CVA tenderness. No mass felt. EXTREMITIES: No edema. Full range of motion of all extremities, equal. NEUROLOGIC: No focal deficit. Cranial nerves II through XII are grossly intact. No headache. No double vision. SKIN: Not dry. Intact. Turgor - normal. LYMPHATIC: No palpable lymph nodes/no lymphedema. MUSCULOSKELETAL: Normal joints with no swelling. Muscle tone is normal. LABS: hgb 13.2, hct 38, WBC 7,700 normal differential, creatinine 0.8, BUN 6, potassium 3.4. ASSESSMENT: 1. Acute gastroenteritis with dehydration seems to have resolved 2. Urinary tract infection possible seems to be under control PLAN: 1. Change the IV antibiotic Rocephin to Omnicef 2. Discontinue IV fluids 3. K-Tab to be increased to 20meq twice a day because of borderline hypokalemia 4. The patient advised to be up and about CONDITION: Improving. TIME SPENT: More than 30 minutes. Plan and coordination of the patient's care discussed in the presence of nurse. SHANI
--- NOTE | 2021-10-10 10:38 | PN ---
DATE OF SERVICE: 10/06/21 SUBJECTIVE: The patient was seen and examined with the Nurse Practitioner. The patient is up and about doing well. No nausea and no vomiting. The patient is going to be discharged home in stable condition to be followed as an outpatient. TIME SPENT: More than 30 minutes. Plan and coordination of the patient's care discussed in the presence of nurse. SHANI
== END 2021-10-06 09:33 | disposition home or self-care (01) | DRG 392 ==
LOC: LAB 10:36 → MEDSURG A 13:15 → OBSVTOIN 13:15 → INTOOBSV 13:15
PROVIDERS: ADMIT Internal Medicine; ATTEND Internal Medicine